=== PATIENT | female | born 1980 | race Two or more races ===

== ENCOUNTER 2020-11-17 08:59 | Outpatient (REF) | payer OTHER, SELFPAY ==
--- NOTE | ~2020-11-17 | XR_ITS ---
EXAMINATION: XR SHOULDER, LEFT CLINICAL INFORMATION: Pain in left shoulder. COMPARISON: None TECHNIQUE: AP external rotation, Grashey, scapular Y, and axillary views of the left shoulder. FINDINGS: The bones and soft tissues are normal. No fracture. Glenohumeral and acromioclavicular alignment is anatomic with normal joint space. No abnormal soft tissue calcifications. XR/XR shoulder LT min 2V IMPRESSION: Normal left shoulder.
== END 2020-11-17 09:00 | disposition home or self-care (01) ==
LOC: HO.XRAY 08:59
PROVIDERS: PCP Nurse Practitioner Family; Visit Provider Nurse Practitioner Family
DX: M25.512 Pain in left shoulder (principal); Z91.81 History of falling
CPT/HCPCS: 73030

== ENCOUNTER 2021-08-29 08:57 | Outpatient (REF) | payer OTHER, SELFPAY ==
--- NOTE | ~2021-08-29 | XR_ITS ---
EXAMINATION: CERVICAL SPINE 3 VIEWS CLINICAL INFORMATION: Cervical disc disorder, unspecified. COMPARISON: None. TECHNIQUE: Frontal, odontoid, lateral and swimmer's views are obtained. FINDINGS: Vertebral body heights and alignment are normal. The disc spaces are well-maintained. There is mild anterior spondylosis at C4-C5 and C5-C6.. No acute fracture or spondylolisthesis is seen. The posterior elements are intact. There is no prevertebral soft tissue swelling. The dens and C7-T1 interface are normal. XR/XR cervical spine 3V IMPRESSION: 1. No acute fracture or spondylolisthesis is seen. 2. The cervical disc spaces are well-maintained. 3. There is mild anterior spondylosis at C4-C5 and C5-C6.
== END 2021-08-29 08:58 | disposition home or self-care (01) ==
LOC: HO.XRAY 08:57
PROVIDERS: PCP Nurse Practitioner Family; Visit Provider Nurse Practitioner Family
DX: M50.90 Cervical disc disorder, unspecified, unspecified cervical region (principal)
CPT/HCPCS: 72040

== ENCOUNTER 2021-08-30 09:13 | Outpatient (REF) | payer OTHER, SELFPAY ==
--- NOTE | ~2021-08-30 | XR_ITS ---
EXAMINATION: XR SACRUM AND COCCYX CLINICAL INFORMATION: Sacrococcygeal disorder COMPARISON: Sacrum and coccyx radiograph from 11/21/2017 TECHNIQUE: 3 views of the sacrum and coccyx were obtained FINDINGS: No acute visible fracture or dislocation. Bilateral sacroiliac joints are patent. Joint spaces and alignment are maintained. Soft tissues are unremarkable. XR/XR sacrum coccyx min 2V IMPRESSION: No acute visible fracture or dislocation.
[2021-08-30 10:37] LABS: Alanine Aminotransferase 20 U/L (0-31); Albumin Level 4.1 g/dL (3.5-5.0); Alkaline Phosphatase 92 U/L (39-117); Anion Gap 12 (12-20); Aspartate Amino Transferase 19 U/L (5-31); Bilirubin Total 0.9 mg/dL (0.0-1.0); Blood Urea Nitrogen 8 mg/dL (9-16); Calcium 9.5 mg/dL (8.4-10.2); Carbon Dioxide 25 mmol/L (22-29); Chloride 109 mmol/L (96-108); Cholesterol 196 mg/dL; Estimated Glomerular Filt Rate > 60; Glucose Fasting 95 mg/dL (60-99); HDL Cholesterol 37 mg/dL; LDL Cholesterol Calculated 140 mg/dl; Potassium 3.7 mmol/L (3.3-5.1); Sodium 142 mmol/L (135-145); Total Protein 7.2 g/dL (6.5-8.0); Triglycerides 95 mg/dL
[2021-08-30 10:43] LABS: Appearance Urine CLEAR; Color Urine YELLOW; Glucose Urine UA NEG (NEG); Leukocyte Esterase Urine NEG (NEG); Nitrite Urine NEG (NEG); Specific Gravity - Urine 1.025 (1.005-1.025); Urine Blood NEG (NEG); Urine Ketones NEG (NEG); Urine Protein NEG (NEG-TRACE)
[2021-08-30 10:51] LABS: TSH reflex Free T4 1.08 uIU/mL (0.32-4.0)
== END 2021-08-30 09:14 | disposition home or self-care (01) ==
LOC: HO.LAB 09:13
PROVIDERS: PCP Nurse Practitioner Family; Visit Provider Nurse Practitioner Family
DX: M53.3 Sacrococcygeal disorders, not elsewhere classified (principal); F41.9 Anxiety disorder, unspecified
CPT/HCPCS: 36415; 72220; 80053; 80061; 81003; 84443

== ENCOUNTER 2021-10-09 12:53 | Outpatient (REF) | payer OTHER, SELFPAY ==
[2021-10-09 13:02] LABS: MANUAL DIFF FLAG NO
[2021-10-09 13:54] LABS: Basophils Absolute Auto 0.1 X10*3/uL (0.0-0.2); Basophils Percent Auto 0.7 % (0-2); Eosinophils Absolute Auto 0.2 X10*3/uL (0.0-0.4); Eosinophils Percent Auto 1.7 % (0-4); Hematocrit 37.8 % (37.0-47.0); Hemoglobin 12.4 g/dl (12.0-16.0); Imm Gran Abs Auto 0.03 X10*3/uL (0.00-0.03); Imm Gran Pct Auto 0.3 % (0.0-0.4); Lymphocytes Absolute Auto 3.8 X10*3/uL (1.2-4.9); Lymphocytes Percent Auto 33.6 % (20-40); Mean Corpuscular HGB Conc 32.8 g/dl (31.0-35.0); Mean Corpuscular Hemoglobin 24.3 pg (27.0-33.0); Mean Platelet Volume 8.5 fL (9.4-12.3); Monocytes Absolute Auto 0.7 X10*3/uL (0.1-1.2); Monocytes Percent Auto 6.3 % (2-11); Neutrophils Absolute Auto 6.4 x10*3/uL (2.0-8.3); Neutrophils Percent Auto 57.4 % (45-73); Platelet Count 357 X10*3/uL (160-400); Red Blood Count 5.11 X10*6/uL (4.20-5.50); Red Cell Distribution Width 13.7 % (11.0-16.0); White Blood Count 11.2 X10*3/uL (4.8-10.8)
[2021-10-09 14:24] LABS: Iron 62 mcg/dL (30-160); Percent Iron Saturation 14 % (15-50); Total Iron Binding Capacity 432 mcg/dL (228-428); Unsaturated Iron Binding 370 ug/dL
[2021-10-09 14:48] LABS: Ferritin 39 ng/mL (10-250)
[2021-10-09 15:22] LABS: Folate 11.9 ng/mL (> or = 4.0); Vitamin B12 258 pg/mL (200-900)
== END 2021-10-09 12:54 | disposition home or self-care (01) ==
LOC: HO.LAB 12:53
PROVIDERS: PCP Nurse Practitioner Family; Visit Provider Nurse Practitioner Family
DX: R53.83 Other fatigue (principal)
CPT/HCPCS: 36415; 82607; 82728; 82746; 83540; 85025

== ENCOUNTER 2021-10-20 10:45 | Outpatient (REF) | payer OTHER, SELFPAY ==
--- NOTE | ~2021-10-20 | MM_ITS ---
EXAMINATION: MM SCREENING DIGITAL BREAST TOMOSYNTHESIS, BILATERAL CLINICAL INFORMATION: Screening. Asymptomatic. The lifetime risk of breast cancer based on the Tyrer-Cuzick Model is 9.5%. COMPARISON: Mammography: None TECHNIQUE: Digital breast tomosynthesis is performed in both the craniocaudal and mediolateral oblique views along with computer-aided detection (CAD). Synthesized 2D images are generated from the tomosynthesis. FINDINGS: There are scattered areas of fibroglandular density (ACR BI-RADS breast composition Category b). There are no significant masses, abnormal calcifications, or other abnormalities. MM/MM tomosynthesis screening BI IMPRESSION: There are no significant changes from prior study. ASSESSMENT: BI-RADS 1: Negative RECOMMENDATION: Routine annual mammography screening. This patient's information was entered into a reminder system with a target due date for their next mammogram.
== END 2021-10-20 10:46 | disposition home or self-care (01) ==
LOC: HO.MAMMO 10:45
PROVIDERS: PCP Nurse Practitioner Family; Visit Provider Nurse Practitioner Family
DX: Z12.31 Encounter for screening mammogram for malignant neoplasm of breast (principal)
CPT/HCPCS: 77063; 77067

== ENCOUNTER 2022-01-03 11:34 | Outpatient (REF) | payer OTHER, SELFPAY ==
[2022-01-03 13:58] LABS: Appearance Urine CLEAR; Color Urine YELLOW; Glucose Urine UA NEG (NEG); Leukocyte Esterase Urine NEG (NEG); Nitrite Urine NEG (NEG); Urine Blood NEG (NEG); Urine Ketones NEG (NEG); Urine Protein NEG (NEG-TRACE)
== END 2022-01-03 11:35 | disposition home or self-care (01) ==
LOC: HO.HMGCLDS 11:34
PROVIDERS: Visit Provider Nurse Practitioner Family
DX: R30.0 Dysuria (principal)
CPT/HCPCS: 81003; 87086

== ENCOUNTER 2022-02-14 11:35 | Outpatient (REF) | payer OTHER, SELFPAY ==
--- NOTE | ~2022-02-14 | US_ITS ---
EXAMINATION: US RETROPERITONEAL LIMITED (RENAL ONLY) CLINICAL INFORMATION: Dysuria, flank pain. COMPARISON: None TECHNIQUE: Real-time imaging of the kidneys. FINDINGS: RIGHT KIDNEY: 10.6 x 4.2 x 5.1 cm (SAG x AP x TRV). The kidney is normal in size, contour, and echogenicity. Renal cortical thickness is normal. No calculi or focal parenchymal lesions. No hydronephrosis. LEFT KIDNEY: 11.3 x 5.2 x 5.3 cm (SAG x AP x TRV). The kidney is normal in size, contour, and echogenicity. Renal cortical thickness is normal. No calculi or focal parenchymal lesions. No hydronephrosis. The liver is echogenic. US/US renal BI IMPRESSION: Normal renal ultrasound..
== END 2022-02-14 11:36 | disposition home or self-care (01) ==
LOC: HO.HMGCX 11:35
PROVIDERS: Visit Provider Nurse Practitioner Family
DX: R10.9 Unspecified abdominal pain (principal); R30.0 Dysuria
CPT/HCPCS: 76775

== ENCOUNTER 2022-06-14 09:46 | Outpatient (REF) | payer OTHER, SELFPAY ==
[2022-06-15 13:29] LABS: BV Int Neg Control Negative (Negative); BV Int Pos Control Positive (Positive)
== END 2022-06-14 09:47 | disposition home or self-care (01) ==
LOC: HO.LAB 09:46
PROVIDERS: Visit Provider Physician Assistant Medical
DX: N76.0 Acute vaginitis (principal)
CPT/HCPCS: 87480; 87510; 87660

== ENCOUNTER 2022-07-27 17:54 | Emergency (ER) | payer OTHER, SELFPAY ==
[2022-07-27 18:03] VITALS: BP 147/81; PULSE 123; RESP 20; O2SAT 100; BMI 27.3
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
== END 2022-07-27 18:25 | disposition home or self-care (01) ==
LOC: HO.ED 18:18
PROVIDERS: Emergency Provider Emergency Medicine; PCP Nurse Practitioner Family
DX: S13.4XXA Sprain of ligaments of cervical spine, initial encounter (principal); S39.012A Strain of muscle, fascia and tendon of lower back, initial encounter; S16.1XXA Strain of muscle, fascia and tendon at neck level, initial encounter; M54.2 Cervicalgia; R51.9 Headache, unspecified; V43.53XA Car driver injured in collision with pick-up truck in traffic accident, initial encounter; Y92.410 Unspecified street and highway as the place of occurrence of the external cause; Y93.9 Activity, unspecified; Y99.9 Unspecified external cause status; Z79.899 Other long term (current) drug therapy; Z87.891 Personal history of nicotine dependence
CPT/HCPCS: 99282; 99283

== ENCOUNTER 2022-08-07 12:30 | Outpatient (REF) | payer OTHER, SELFPAY ==
--- NOTE | ~2022-08-07 | XR_ITS ---
EXAMINATION: CERVICAL SPINE, THORACIC SPINE AND LUMBAR SPINE. CLINICAL INFORMATION: Neck pain and back pain. COMPARISON: None TECHNIQUE: Cervical spine 3 views dorsal spine 3 views. Lumbar spine 3 views. FINDINGS: Cervical spine: There is mild straightening of cervical lordosis likely spasm. Vertebral heights, alignment and disc heights are normal. There is mild ventral spondylosis C5-C6 disc level. Rest the disc is unremarkable. The craniovertebral junction and the C1-C2 alignment is normal. The prevertebral soft tissues are normal. Dorsal spine: There is normal thoracic kyphosis. The vertebral heights, alignment and disc heights are normal. No visible acute fracture, dislocation or subluxation seen. No lytic or sclerotic process seen. Lumbar spine: There is normal lumbar lordosis. The vertebral heights, alignment and disc heights are normal. No visible acute fracture, dislocation or subluxation seen. SI joints are symmetrical and normal. XR/XR cervical spine 2V IMPRESSION: 1. Mild ventral spondylosis C5-C6 disc level. No visible acute fracture, dislocation or subluxation seen. 2. Unremarkable dorsal spine exam. 3. Unremarkable lumbar spine exam.
--- NOTE | ~2022-08-07 | XR_ITS ---
EXAMINATION: CERVICAL SPINE, THORACIC SPINE AND LUMBAR SPINE. CLINICAL INFORMATION: Neck pain and back pain. COMPARISON: None TECHNIQUE: Cervical spine 3 views dorsal spine 3 views. Lumbar spine 3 views. FINDINGS: Cervical spine: There is mild straightening of cervical lordosis likely spasm. Vertebral heights, alignment and disc heights are normal. There is mild ventral spondylosis C5-C6 disc level. Rest the disc is unremarkable. The craniovertebral junction and the C1-C2 alignment is normal. The prevertebral soft tissues are normal. Dorsal spine: There is normal thoracic kyphosis. The vertebral heights, alignment and disc heights are normal. No visible acute fracture, dislocation or subluxation seen. No lytic or sclerotic process seen. Lumbar spine: There is normal lumbar lordosis. The vertebral heights, alignment and disc heights are normal. No visible acute fracture, dislocation or subluxation seen. SI joints are symmetrical and normal. XR/XR lumbar spine 2-3V IMPRESSION: 1. Mild ventral spondylosis C5-C6 disc level. No visible acute fracture, dislocation or subluxation seen. 2. Unremarkable dorsal spine exam. 3. Unremarkable lumbar spine exam.
--- NOTE | ~2022-08-07 | XR_ITS ---
EXAMINATION: CERVICAL SPINE, THORACIC SPINE AND LUMBAR SPINE. CLINICAL INFORMATION: Neck pain and back pain. COMPARISON: None TECHNIQUE: Cervical spine 3 views dorsal spine 3 views. Lumbar spine 3 views. FINDINGS: Cervical spine: There is mild straightening of cervical lordosis likely spasm. Vertebral heights, alignment and disc heights are normal. There is mild ventral spondylosis C5-C6 disc level. Rest the disc is unremarkable. The craniovertebral junction and the C1-C2 alignment is normal. The prevertebral soft tissues are normal. Dorsal spine: There is normal thoracic kyphosis. The vertebral heights, alignment and disc heights are normal. No visible acute fracture, dislocation or subluxation seen. No lytic or sclerotic process seen. Lumbar spine: There is normal lumbar lordosis. The vertebral heights, alignment and disc heights are normal. No visible acute fracture, dislocation or subluxation seen. SI joints are symmetrical and normal. XR/XR thoracic spine 2V IMPRESSION: 1. Mild ventral spondylosis C5-C6 disc level. No visible acute fracture, dislocation or subluxation seen. 2. Unremarkable dorsal spine exam. 3. Unremarkable lumbar spine exam.
== END 2022-08-07 12:31 | disposition home or self-care (01) ==
LOC: HO.HMGCX 12:30
PROVIDERS: Visit Provider Nurse Practitioner Family
DX: M54.6 Pain in thoracic spine (principal); M54.2 Cervicalgia; M54.16 Radiculopathy, lumbar region
CPT/HCPCS: 72040; 72070; 72100

== ENCOUNTER → 2022-09-14 09:36 | Outpatient (BNVA) | payer OTHER, SELFPAY | PROVIDERS: PCP Nurse Practitioner Family; Visit Provider Nurse Practitioner Family | DX: M50.90 Cervical disc disorder, unspecified, unspecified cervical region (principal); M54.16 Radiculopathy, lumbar region; M62.838 Other muscle spasm; M53.3 Sacrococcygeal disorders, not elsewhere classified; Z87.828 Personal history of other (healed) physical injury and trauma | CPT/HCPCS: 99202 ==

== ENCOUNTER → 2022-10-05 09:21 | Outpatient (BNVA) | payer OTHER, SELFPAY | PROVIDERS: PCP Nurse Practitioner Family; Visit Provider Nurse Practitioner Family | DX: Z13.89 Encounter for screening for other disorder (principal) ==

== ENCOUNTER 2022-10-22 09:14 | Outpatient (REF) | payer OTHER, SELFPAY ==
--- NOTE | ~2022-10-22 | MM_ITS ---
EXAMINATION: MM SCREENING DIGITAL BREAST TOMOSYNTHESIS, BILATERAL CLINICAL INFORMATION: Screening. Asymptomatic. The lifetime risk of breast cancer based on the Tyrer-Cuzick Model is 9%. COMPARISON: Mammography: 10/20/2021 (baseline). TECHNIQUE: Digital breast tomosynthesis is performed in both the craniocaudal and mediolateral oblique views along with computer-aided detection (CAD). Synthesized 2D images are generated from the tomosynthesis. FINDINGS: There are scattered areas of fibroglandular density (ACR BI-RADS breast composition Category b). There are no significant masses, abnormal calcifications, or other abnormalities. Parenchymal pattern is similar to prior baseline exam. No architectural abnormality. There is some fine deodorant artifact overlying the axilla. No significant changes. MM/MM tomosynthesis screening BI IMPRESSION: No mammographic evidence of malignancy. ASSESSMENT: BI-RADS 1: Negative RECOMMENDATION: Routine annual mammography screening. This patient's information was entered into a reminder system with a target due date for their next mammogram.
== END 2022-10-22 09:15 | disposition home or self-care (01) ==
LOC: HO.MAMMO 09:14
PROVIDERS: PCP Nurse Practitioner Family; Visit Provider Nurse Practitioner Family
DX: Z12.31 Encounter for screening mammogram for malignant neoplasm of breast (principal)
CPT/HCPCS: 77063; 77067

== ENCOUNTER 2023-02-28 13:04 | Outpatient (AMB) | payer OTHER, SELFPAY ==
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
[2023-02-28 13:18] VITALS: BP 134/77; PULSE 90; O2SAT 97; BMI 28.5
== END 2023-02-28 13:34 | disposition home or self-care (01) ==
PROVIDERS: PCP Nurse Practitioner Family; Visit Provider Nurse Practitioner Family
DX: M25.561 Pain in right knee (principal); Z91.81 History of falling; M53.3 Sacrococcygeal disorders, not elsewhere classified; M54.50 Low back pain, unspecified; M50.90 Cervical disc disorder, unspecified, unspecified cervical region
CPT/HCPCS: 99214

== ENCOUNTER → 2023-02-28 13:04 | Outpatient (BNVA) | payer OTHER, SELFPAY | PROVIDERS: PCP Nurse Practitioner Family; Visit Provider Nurse Practitioner Family | DX: M25.561 Pain in right knee (principal); M50.90 Cervical disc disorder, unspecified, unspecified cervical region; M54.50 Low back pain, unspecified; M53.3 Sacrococcygeal disorders, not elsewhere classified; Z91.81 History of falling | CPT/HCPCS: 99212 ==

== ENCOUNTER 2023-03-08 08:21 | Outpatient (REF) | payer OTHER, SELFPAY ==
--- NOTE | ~2023-03-08 | XR_ITS ---
EXAMINATION: XR KNEE, RIGHT CLINICAL INFORMATION: Pain in the right knee. COMPARISON: None available. TECHNIQUE: Four views of the right knee. FINDINGS: No acute fractures or subluxation. Minimal joint space narrowing of the medial and patellofemoral compartments. No erosions or chondrocalcinosis. Small joint effusion. XR/XR knee RT 3V IMPRESSION: 1. No acute fractures or subluxation. 2. 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 3. Small joint effusion.
== END 2023-03-08 08:22 | disposition home or self-care (01) ==
LOC: HO.XRAY 08:21
PROVIDERS: PCP Nurse Practitioner Family; Visit Provider Nurse Practitioner Family
DX: M25.561 Pain in right knee (principal); Z91.81 History of falling
CPT/HCPCS: 73562

== ENCOUNTER 2023-08-13 08:26 | Outpatient (REF) | payer OTHER, SELFPAY ==
[2023-08-13 09:22] LABS: Appearance Urine Cloudy; Color Urine Yellow; Glucose Urine UA Negative (Negative); Leukocyte Esterase Urine Negative (Negative); Nitrite Urine Negative (Negative); PH 5.5 (5.0-9.0); Urine Blood Negative (Negative); Urine Ketones Negative (Negative); Urine Protein Negative (Neg-Trace)
== END 2023-08-13 08:27 | disposition home or self-care (01) ==
LOC: HO.LAB 08:26
PROVIDERS: PCP Nurse Practitioner Family; Visit Provider Nurse Practitioner Family
DX: R30.0 Dysuria (principal)
CPT/HCPCS: 81003

== ENCOUNTER 2023-09-04 10:15 | Outpatient (REF) | payer OTHER, SELFPAY ==
--- NOTE | ~2023-09-04 | US_ITS ---
EXAMINATION: US RETROPERITONEAL COMPLETE (RENAL) CLINICAL INFORMATION: Frequency of micturition. COMPARISON: Renal ultrasound 02/14/2022. Ultrasound abdomen 06/10/2008. TECHNIQUE: Real-time imaging of the kidneys and bladder. FINDINGS: RIGHT KIDNEY: 10.7 x 3.6 x 5.2 cm (SAG x AP x TRV). The kidney is normal in size, contour, and echogenicity. Renal cortical thickness is normal. No calculi or focal parenchymal lesions. No hydronephrosis. LEFT KIDNEY: 10.6 x 4.4 x 4.5 cm (SAG x AP x TRV). The kidney is normal in size, contour, and echogenicity. Renal cortical thickness is normal. No calculi or focal parenchymal lesions. No hydronephrosis. BLADDER: Partially distended. Bilateral ureteral jets are demonstrated. Prevoid bladder volume is 105 mL. Postvoid bladder volume is 22 mL. US/US retroperitoneal comp IMPRESSION: Unremarkable examination.
== END 2023-09-04 10:16 | disposition home or self-care (01) ==
LOC: HO.US 10:15
PROVIDERS: PCP Nurse Practitioner Family; Visit Provider Urology
DX: R35.0 Frequency of micturition (principal); N32.81 Overactive bladder
CPT/HCPCS: 76770

== ENCOUNTER 2023-12-06 09:04 | Outpatient (REF) | payer OTHER, SELFPAY | END 2023-12-06 09:05 | disposition home or self-care (01) | LOC: HO.MAMMO 09:04 | PROVIDERS: PCP Nurse Practitioner Family; Visit Provider Nurse Practitioner Family | DX: Z12.31 Encounter for screening mammogram for malignant neoplasm of breast (principal) | CPT/HCPCS: 77063; 77067 ==

== ENCOUNTER → 2023-12-06 09:15 | Outpatient (BNV) | payer OTHER, SELFPAY | PROVIDERS: PCP Nurse Practitioner Family; Visit Provider Radiology Diagnostic Radiology | DX: Z12.31 Encounter for screening mammogram for malignant neoplasm of breast (principal) | CPT/HCPCS: 77063; 77067 ==

== ENCOUNTER 2024-03-12 14:44 | Outpatient (AMB) | payer OTHER, SELFPAY ==
[2024-03-12 14:46] VITALS: BP 118/76; PULSE 92; O2SAT 98; BMI 30.4
--- NOTE | 2024-03-12 14:46 | A.OFFPC_ITS ---
Vital Signs 03/12/24 14:46 Height 5 ft 1 in Weight 161 lb BMI 30.4 BP 118/76 Blood Pressure Location Rt brachial Position Sitting Pulse 92 Pulse Source Pulse Oximeter Pulse Oximetry (%) 98 Oxygen Delivery Method Room Air Intake Visit Reasons: Migraines, back pain Intake Note: pt is here for migraines, back pain. patient has a postivie PHQ9 and PEDRO 7 today. 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: No Accompanied by: Self / Same As Patient Allergies LOTION Allergy (Intermediate, Uncoded 03/12/24 16:23) facial rash TUNA FISH Allergy (Intermediate, Uncoded 03/12/24 16:23) facial rash Medication List - Last Reconciled 03/12/24 by MONICA Ma albuterol sulfate 90 mcg/actuation 1 inh inhalation QID PRN 30 days betamethasone dipropionate 0.05% 1 appl topical DAILY PRN Donut pillow As directed lidocaine 5% 1 patch topical DAILY Tobacco use date assessed: 03/12/24 Dental Screening Dental Screen Date: 03/12/24 Did you have a dental visit in the last 12 months?: Yes Did you have a dental problem in the last 6 months where you did not have access to dental care?: No Was dental information given to patient?: Patient has dentist HPI Migraines, back pain HPI Details Pt c/o frequent migraines, mostly to posterior aspect of her head and moves anteriorly. She reports that these have been happening daily. Pt takes tylenol which helps minimally. Recommended excedrin migraine. Pt also reports cervical neck pain with radicular symptoms down her BUE. Previous cervical spine XR showed mild ventral spondylosis C5-C6 disc level. No visible acute fracture, dislocation or subluxation seen. Will refer to PT. Pt reports dermatitis to her bilat feet. She has seen podiatry who said this was not tinea. Will send steroid cream and refer to derm. Also recommended CeraVe lotion. Pt reports bilat axillary tenderness (rashing/tenderness). She reports not being able to wear rosamaria dorant due to this, which makes it much worse. Denies fever, chills, and dizziness. [facility] Medical History Acute cystitis Fatigue Coccygeal pain Anxiety Left shoulder pain Social History (Reviewed 03/12/24 @ 15:13 by Brodie Gonzalez, [facility]) Housing: House Alcohol intake: former Year quit: 2005 Patient Tobacco Use Status: Former Tobacco user Years Smoked: quit 12/2005 e-Cigarette/Vaping Use: Never Used Second Hand Smoke Exposure: Yes Substance Use Type: Marijuana service: No Current occupational status: unemployed Cognitive needs: No Hearing needs: No Vision needs: No Questionnaire PHQ-9 Over the last 2 weeks, how often have you been bothered by any of the following problems? 1. Little interest or pleasure in doing things: nearly every day 2. Feeling down, depressed, or hopeless: more than half the days 3. Trouble falling or staying asleep, or sleeping too much: nearly every day 4. Feeling tired or having little energy: nearly every day 5. Poor appetite or overeating: nearly every day 6. Feeling bad about yourself - or that you are a failure or have let yourself or your family down: nearly every day 7. Trouble concentrating on things, such as reading the newspaper or watching television: nearly every day 8. Moving or speaking so slowly that other people could have noticed. Or the opposite - being so fidgety or restless that you have been moving around a lot more than usual: more than half the days 9. Thoughts that you would be better off or of hurting yourself in some way: several days Total score: 23 Depression Screening Interpretation: Positive Depression Screening Follow-up: Existing condition and Declines treatment Depression Screening Done: Yes 48729 - PHQ-9 Billing: Yes Source: Developed by Drs. Trevor Brar, Jenniffer Carrion, Felix Segovia and colleagues, with an educational naif from [employer]. Thrive Questionnaire Date Thrive assessed: 03/12/24 I am a: Patient What is your living situation today?: I have a steady place to live Within the past 12 months, did the food you bought not last and you didn't have the money to get more?: Sometimes True Within the past 12 months, did you worry whether your food would run out before you got money to buy more?: Often true Do you have trouble paying for medicines?: No Do you have trouble getting transportation to medical appointments?: No Do you have trouble paying your heating and electricity bill?: No Do you have trouble taking care of your child, family member or friend?: No Do you have trouble with day-to-day activities such as bathing, preparing meals, shopping, managing finances, etc.?: Yes Are you currently unemployed and looking for a job?: No Are you interested in more education?: No Please select the resources that you would like help with: Food and Utilities Currently or been in a relationship where the following occur: No concerns reported THRIVE Score: 2 AUDIT C Alcohol Use Questionnaire (AUDIT-C) 1. How often do you have a drink containing alcohol?: Never Total Score: 0 Score Reviewed/Action Taken: Yes PEDRO-7 AMB Questionnaire PEDRO-7 Date PEDRO - 7 assessed: 03/12/24 Feeling nervous, anxious, or on edge: 2 = More than half the days Not being able to stop or control worryin = Nearly every day Worrying too much about different things: 3 = Nearly every day Trouble relaxin = Nearly every day Being so restless that it is hard to sit still: 3 = Nearly every day Becoming easily annoyed or irritable: 3 = Nearly every day Feeling afraid as if something awful might happen: 1 = Several days Total PEDRO-7 score (0-4 normal; 5-9 mild; 10-14 moderate; 15-21 severe): 18 Source: Developed by Drs. Trevor Brar, Jenniffer Carrion, Felix Segovia and colleagues, with an educational naif from [employer]. PEDRO-7 Assessment Billing PEDRO-7 Assessment Tool: PEDRO-7 Assessment 15532 Review of Systems Const Reports as per HPI Physical exam (Primary Care) Vital Signs: Last Vital Signs Pulse 92 03/12/24 14:46 BP 118/76 03/12/24 14:46 Pulse Ox 98 03/12/24 14:46 Oxygen Delivery Method Room Air 03/12/24 14:46 BMI result Body Mass Index 30.4 Tobacco/Smoking Status: Tobacco use Status Tobacco use date assessed 03/12/24 03/12/24 14:48 Patient Tobacco Use Status Former Tobacco user 03/12/24 14:48 e-Cigarette/Vaping Use Never Used 03/12/24 14:48 PHQ-9: PHQ-9 Score PHQ-9: Total score 23 03/12/24 15:15 Depression Screening Interpretation: Positive Depression Screening Follow-up: Existing condition and Declines treatment Thrive Assessment: Date of Thrive Assessment Date Thrive assessed 03/12/24 03/12/24 14:48 Currently or been in a relationship where the following occur: No concerns reported Const General: cooperative Orientation/consciousness: patient oriented x3 Resp Effort & Inspection: normal respiratory effort Auscultation: diminished lung sounds Cardio Rate: regular rate Rhythm: regular rhythm Heart sounds: S1 normal heart sound present, S2 normal heart sound present and Murmur heart sound present Back/Spine/Pelvis Other: cervical neck tenderness noted with neck flexion and turning head side to side, + spurlings to right Skin Other: bulat plantar aspect of feet with dry appearing erythema that spreads to medial aspect of bilat feet. erythema (macular) to bilat axillary regions, slight tenderness with touch Neuro General: patient oriented x3 Psych Appearance: grossly normal Mental Status: mental status grossly normal Speech and movement: Normal speech and movement present Affect: normal affect Attitude: cooperative Thought process: Normal thought process present Thought content: Normal thought content present Insight: Good insight present (Psych) Judgement: Good judgement present (Psych) Assessment and Plan Assessment & Plan (1) Cervical neck pain with evidence of disc disease: Code(s): M50.90 - Cervical disc disorder, unspecified, unspecified cervical region Plan: PT ordered, see previous XR results (2) Migraines: Code(s): G43.909 - Migraine, unspecified, not intractable, without status migrainosus Plan: excedrin migraine (3) Rash of both feet: Code(s): R21 - Rash and other nonspecific skin eruption Plan: steroid cream, lotion, derm referral placed Plan The patient agreed to the use of a medical service representative for this encounter. Scribed for ISIDORO Guy by Brianda Thorne medical service representative, on 03/12/2024 at 15:10 EST. Orders: Orders Complete Blood Count Auto Diff Today G43.909 - Migraine, unspecified, not intractable, without status migrainosus, M50.90 - Cervical disc disorder, unspecified, unspecified cervical region Comprehensive [place]. Panel Fast Today G43.909 - Migraine, unspecified, not intractable, without status migrainosus, M50.90 - Cervical disc disorder, unspecified, unspecified cervical region TSH reflex Free T4 Today G43.909 - Migraine, unspecified, not intractable, without status migrainosus, M50.90 - Cervical disc disorder, unspecified, unspecified cervical region UA CC w/rflx Micro + Cult Today G43.909 - Migraine, unspecified, not intractable, without status migrainosus, M50.90 - Cervical disc disorder, unspecified, unspecified cervical region PT Evaluation and Treatment Today M50.90 - Cervical disc disorder, unspecified, unspecified cervical region Lipid Panel Today G43.909 - Migraine, unspecified, not intractable, without status migrainosus, M50.90 - Cervical disc disorder, unspecified, unspecified cervical region Referrals Dermatology Referral R21 - Rash and other nonspecific skin eruption Medications: New betamethasone dipropionate 0.05% 1 appl topical DAILY PRN 45 grams 0RF skin irritation Coding Level of Care Code Est Pt Level 3 (27322) Diagnoses Cervical neck pain with evidence of disc disease M50.90 Migraines G43.90 Rash of both feet R21 Additional Codes PEDRO-7 Assessment Billing - PEDRO-7 Assessment Tool: PEDRO-7 Assessment 60925 ([id number])
== END 2024-03-12 15:32 | disposition home or self-care (01) ==
PROVIDERS: PCP Nurse Practitioner Family; Visit Provider Nurse Practitioner Family
DX: M50.90 Cervical disc disorder, unspecified, unspecified cervical region (principal); G43.909 Migraine, unspecified, not intractable, without status migrainosus; R21 Rash and other nonspecific skin eruption
CPT/HCPCS: 99213

== ENCOUNTER 2024-05-12 11:14 | Outpatient (AMB) | payer OTHER, SELFPAY ==
--- NOTE | 2024-05-12 11:35 | MHC.OFFWIV ---
Intake Vital Signs 05/12/24 11:37 Height 5 ft 1 in Weight 157 lb BMI 29.7 BP 142/90 H Blood Pressure Location Lt brachial Position Sitting Pulse 94 Pulse Source Pulse Oximeter Temp 99.4 F Temp Source Oral Pulse Oximetry (%) 96 Oxygen Delivery Method Room Air Intake Visit Reasons: EP-SOB, dry mouth, congestion Intake Note: Patient here for SOB, congestion, dry mouth and cough which has been present for about 1 week. Patient Tobacco Use Status: Former Tobacco user Allergies LOTION Allergy (Intermediate, Uncoded 05/12/24 11:40) facial rash TUNA FISH Allergy (Intermediate, Uncoded 05/12/24 11:40) facial rash Do you need a note to return to daycare/school/sports/work: No HPI HPI Comments History of Present Illness Details She presents to office with [facility] She has hx of asthma and has inhaler which she does not use daily States also hx of anxiety ongoing for a while During anxiety and sometimes with stairs and activity she has SOB at baseline States dry mouth more than usual x 1 week Last night felt SOB with some heart racing but this resolved as soon as she got out of bed and went into fresh air Drank fluids and thought mouth dry and looked white ? thrush Food felt dry tasting Last inhaler use was approx 2 weeks ago Unsure about acid reflux diagnosis; said sometimes he has nausea/vomiting after acidic foods Uses Tums intermittently Slight congestion now with post nasal drop but no cold or cough symptoms PFSH Medical History Acute cystitis Fatigue Coccygeal pain Anxiety Left shoulder pain Social History Housing: House Alcohol intake: former Year quit: 2005 Patient Tobacco Use Status: Former Tobacco user Years Smoked: quit 12/2005 e-Cigarette/Vaping Use: Never Used Second Hand Smoke Exposure: Yes Substance Use Type: Marijuana service: No Current occupational status: unemployed Cognitive needs: No Hearing needs: No Vision needs: No Review of Systems Const Denies chills, Denies fatigue, Denies fever(s) and Denies headache(s) Eyes Denies change in vision ENT Denies dizziness, Denies headache(s), Reports sore throat (dryness), Denies throat swelling, Denies tongue swelling and Reports other (white discoloration tongue) Card Denies chest pain, Denies syncope, Reports rapid heart rate (episodes with anxiety) and Reports dyspnea Resp Denies cough and Reports dyspnea GI Denies abdominal pain, Denies diarrhea, Reports nausea and Reports vomiting Musc Denies myalgias Neuro Denies dizziness, Denies syncope and Denies headache(s) Psych Reports anxiety Endo Denies fatigue Aller/Immun Denies throat swelling and Denies tongue swelling Physical Exam Vital Signs: Last Vital Signs Temp 99.4 F 05/12/24 11:37 Pulse 94 05/12/24 11:37 BP 142/90 H 05/12/24 11:37 Pulse Ox 96 05/12/24 11:37 Oxygen Delivery Method Room Air 05/12/24 11:37 BMI result Body Mass Index 29.7 General: Non-toxic, NAD. Speaking full sentences. Skin: Warm dry throughout Eye: EOMI HENT: Airway patent. Uvula midline. No pharyngeal erythema or edema. 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 + slight white discoloration to dorsum of tongue and some to L lateral gingivae mucosa. No lip or tongue edema. Bilateral canals clear. TM non-erythematous, non-bulging. No TM perforation or hemotympanum noted. Respiratory: CTA bilaterally. No wheezes, rales or rhonchi Cardiac: RRR. No murmur MSK: Full ROM extremities. Neurology: A/O. No aphasia or facial droop. Gait without abnormality Psych: Good mood and affect Assessment & Plan Assessment & Plan (1) Thrush: Code(s): B37.0 - Candidal stomatitis Plan: Patient seen and evaluated. No strep indicated Pt request covid/flu/rsv be sent + thrush on exam and nystatin use discussed with pt Her palpitations/SOB seem consistent with anxiety as she gets them when feeling anxious and she endorses a lot of anxiety and triggers during visit tofay No SOB or palpitations symptoms present currently We discussed s/s that warrant ER evaluation and management Patient gave verbal understanding and had no additional questions or concerns at time of discharge All questions answered Orders: Orders SARS-CoV2/FLU/RSV Today B37.0 - Candidal stomatitis Medications: New nystatin swish and spit after 30 seconds 5 mL PO QID 200 mL 0RF 10 days Coding Level of Care Code Est Pt Level 3 (22397) Diagnoses Thrush B37.0
[2024-05-12 11:37] VITALS: BP 142/90; PULSE 94; TEMP 37.4; O2SAT 96; BMI 29.7
== END 2024-05-12 12:15 | disposition home or self-care (01) ==
PROVIDERS: PCP Nurse Practitioner Family; Visit Provider Physician Assistant
DX: B37.0 Candidal stomatitis (principal)

== ENCOUNTER 2024-05-12 11:14 | Outpatient (REF) | payer OTHER, SELFPAY ==
[2024-05-12 14:22] LABS: Influenza A PCR NEGATIVE (Negative); Influenza B PCR NEGATIVE (Negative); Resp Syncy Virus RNA Qual PCR NEGATIVE (Negative); SARS COV2 PCR INHOUSE NEGATIVE (Negative)
== END 2024-05-12 11:15 | disposition home or self-care (01) ==
LOC: HO.HMGCLNP 11:14
PROVIDERS: PCP Nurse Practitioner Family; Visit Provider Physician Assistant
DX: B37.0 Candidal stomatitis (principal)
CPT/HCPCS: 0241U; 99212

== ENCOUNTER 2024-05-29 08:59 | Outpatient (REF) | payer OTHER, SELFPAY ==
[2024-05-29 10:07] LABS: MANUAL DIFF FLAG NO
[2024-05-29 10:09] LABS: Basophils Absolute Auto 0.1 X10*3/uL (0.0-0.2); Basophils Percent Auto 0.9 % (0-2); Eosinophils Absolute Auto 0.2 X10*3/uL (0.0-0.4); Eosinophils Percent Auto 2.1 % (0-4); Hematocrit 39.6 % (37.0-47.0); Imm Gran Abs Auto 0.01 X10*3/uL (0.00-0.03); Imm Gran Pct Auto 0.1 % (0.0-0.4); Lymphocytes Absolute Auto 2.3 X10*3/uL (1.2-4.9); Mean Corpuscular HGB Conc 32.8 g/dl (31.0-35.0); Mean Corpuscular Hemoglobin 24.4 pg (27.0-33.0); Mean Corpuscular Volume 74.4 fL (80.0-98.0); Mean Platelet Volume 8.6 fL (9.4-12.3); Monocytes Absolute Auto 0.5 X10*3/uL (0.1-1.2); Monocytes Percent Auto 6.7 % (2-11); Neutrophils Percent Auto 62.2 % (45-73); Platelet Count 343 X10*3/uL (160-400); Red Blood Count 5.32 X10*6/uL (4.20-5.50); Red Cell Distribution Width 13.5 % (11.0-16.0); White Blood Count 8.1 X10*3/uL (4.8-10.8)
[2024-05-29 10:59] LABS: Alanine Aminotransferase 26 U/L (0-31); Albumin Level 4.2 g/dL (3.5-5.0); Alkaline Phosphatase 75 U/L (39-117); Anion Gap 11 (12-20); Aspartate Amino Transferase 29 U/L (5-31); Bilirubin Total 0.8 mg/dL (0.0-1.0); Blood Urea Nitrogen 10 mg/dL (9-16); Calcium 9.3 mg/dL (8.4-10.2); Carbon Dioxide 26 mmol/L (22-29); Chloride 105 mmol/L (96-108); Cholesterol 218 mg/dL (<200); Estimated Glomerular Filt Rate > 60; Glucose Fasting 96 mg/dL (60-99); HDL Cholesterol 47 mg/dL (>40); LDL Cholesterol Calculated 153 mg/dL (<100); Potassium 3.6 mmol/L (3.3-5.1); Sodium 138 mmol/L (135-145); Total Protein 7.5 g/dL (6.5-8.0); Triglycerides 92 mg/dL (<150)
[2024-05-29 11:04] LABS: TSH reflex Free T4 0.78 uIU/mL (0.32-4.0)
[2024-05-29 13:26] LABS: Appearance Urine Turbid; Color Urine Yellow; Glucose Urine UA 100 mg/dL (Negative); Leukocyte Esterase Urine Negative (Negative); Nitrite Urine Negative (Negative); PH 6.5 (5.0-9.0); Specific Gravity - Urine >= 1.030 (1.005-1.025); UMIC TRIGGER UACC YES; Urine Blood Negative (Negative); Urine Ketones Trace mg/dL (Negative); Urine Protein 30 (1+) mg/dL (Neg-Trace)
[2024-05-29 13:39] LABS: Bacteria Urine 2+ (None Seen); Squamous Epithelial Cell Urine >20 /HPF (0-2); UACC Culture Trigger YES
[2024-05-29 13:40] LABS: RBC Urine 0-2 /HPF (0-2)
== END 2024-05-29 09:00 | disposition home or self-care (01) ==
LOC: HO.HMGCLDS 08:59
PROVIDERS: PCP Nurse Practitioner Family; Visit Provider Nurse Practitioner Family
DX: M50.90 Cervical disc disorder, unspecified, unspecified cervical region (principal); G43.909 Migraine, unspecified, not intractable, without status migrainosus
CPT/HCPCS: 36415; 80053; 80061; 81001; 84443; 85025; 87086

== ENCOUNTER 2024-09-18 09:00 | Outpatient (RCR) | payer OTHER, SELFPAY ==
--- NOTE | 2024-08-10 10:14 | MHC.PT.EP ---
[facility] [place] [facility] [place] [facility] [place] [facility] [address] Yamila Obrien [address] [phone] F: [phone] F: [phone] F: [phone] F: [phone] Physical Therapy Plan of Care Date of Evaluation: 08/10/24 Date of Surgery: Diagnosis: cervical disc disorder, unspecified Assessment: 44 y/o female referred to PT with cervicalgia. Of note, pt talks at length re: multiple mental health and physical health issues requiring constant redirection. Also emphasized pt finish intake paperwork for upcoming mental health therapy appointment. Pt reports whole body pain, migraines, neck pain, and feeling stiffness resulting in pain and difficulty with 'everything' such as driving, turning, sleeping, lifting, reaching, chores, and caregiving for son. Examination shows limited cervical rotation, normal shoulder ROM with end range pain, fair strength with pain, shallow fast breathing pattern, and TTP. Educated pt on downtraining of nervous system for chronic pain and f/u with mental health therapist. 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 Manual therapy to restore motion and function. Therapeutic exercise to improve strength and flexibility. Neuromuscular re-education for posture and balance. Therapeutic activities to return to functional activities of daily living. Electronically signed by: Gladys Carreon PT Please sign and return to therapist. Thank you for your referral.
--- NOTE | 2024-10-22 15:09 | MHC.PT.DC ---
[facility] [place] [facility] [place] [facility] [address] Yamila Obrien [address] [phone] F: [phone] F: [phone] F: [phone] F: [phone] Physical Therapy Discharge Report Diagnosis: cervical disc disorder, unspecified Date of Surgery: Date of Evaluation: 08/10/24 Date of Discharge: 10/22/24 Treatments to Date: 5 Cancellations to Date: 1 No Shows to Date: 0 Discharge Status: Independent with HEP Discharge Summary: Pt did not f/u with further visits and it has been >one month since attending PT. At time of last visit, education pt on breathing and avoiding breath holding with exercises. And reviewed performing exercises in comfortable ranges for improved toelrance. Electronically signed by: Gladys Carreon PT Please sign and return to therapist. Thank you for your referral.
== END 2024-10-22 15:09 | disposition home or self-care (01) ==
LOC: HO.PTCHIC 09:00
PROVIDERS: PCP Nurse Practitioner Family; Visit Provider Nurse Practitioner Family
DX: M50.90 Cervical disc disorder, unspecified, unspecified cervical region (principal)
CPT/HCPCS: 97110; 97162

== ENCOUNTER 2024-09-21 13:08 | Outpatient (AMB) | payer OTHER, SELFPAY ==
--- OUTSIDE RECORDS SUMMARY | 2024-09-21 13:10 | XMS_ITS | Clinical Summary ---
Author Organization [address] [place] [address] Address [address] [place] [address] Phone Care Team Providers Care Fox Raiser Name Role Phone Hannahmadelin Brodie Carroll NP Primary Care Provider Allergies Active Allergy Reactions Criticality Noted Date Comments Other Anaphylaxis High 12/18/2022 Seafood Medications albuterol HFA (ProAir HFA) 90 mcg/actuation inhaler 11/30/2020 Active doxycycline (VIBRAMYCIN) 100 mg capsule Take 1 capsule (100 mg total) by mouth 2 (two) times a day for 7 days. Take with at least 8 ounces (large glass) of water, do not lie down for 30 minutes after 14 capsule 08/25/2024 09/01/19 25 Active Problems Problem Noted Date Diagnosed Date Vulvar irritation 02/10/2024 Overview (07/09/2024): Last Assessment & Plan: Will send labs to ensure no evidence of infection. None on wet mount today. Chlamydia 08/26/2022 Bacterial vaginosis 08/23/2022 Overview (07/09/2024): Last Assessment & Plan: Treated with metrogel. Labial cyst 10/12/2021 Overview (07/09/2024): Last Assessment & Plan: Discussed that as cyst is very small and non-tender no intervention needed, however if cyst become larger or painful patient to return for I&D. Skin lesions 10/12/2021 Overview (07/09/2024): Last Assessment & Plan: Referral placed to dermatology. Irregular menses 11/03/2020 Overview (07/09/2024): Last Assessment & Plan: Urine test negative. Chronic pain 04/14/2019 Marijuana user 04/14/2019 Overview (07/09/2024): Stats she uses for anxiety and chronic pain Encounters Date Type Department Care Team Description 08/25/2024 9:45 AM EST Office Visit Obstetrics & Gynecology - [address] [phone] Nikki Lundy CNM Vaginal irritation (Primary Dx); Screen for STD (sexually transmitted disease); Urinary frequency from Last 3 Months Immunizations Name Administration Dates Next Due Hepatitis A-Hepatitis B Adul t (Twinrix) 18yo and older 11/29/2016,07/04/2016,05/25/2016 Surgical History Surgery Date Site/Laterality Comments SECTION 06/11/2006 PROCEDURE: HISTORICAL DELIVERY; COMMENT: Yeni Medical History Medical History Date Comments Anxiety state DX:Anxiety state Venereal disease DX:Venereal dis ease Asthma DX:Asthma Generalized osteoarthrosis, unspecified site DX:Generalized osteoarthrosi s, unspecified site Dysplasia of cervix, low gra de (LOTTIE 1) 04/30/2003 DX:Dysplasia of cervix, low grade (LOTTIE 1) History of colposcopy 05/26/2003 DX:History of colposcopy; COMMENT: LOTTIE 1 and 02/11/2004 LOTTIE 1 and 11/30/15 negative ASCUS with positive high ris k HPV cervical 10/05/2003 DX:ASCUS with positive high risk HPV cervical; COMMENT: 11/07/2015 History of vitamin D deficiency 12/14/2015 DX:History of vitamin D deficiency; COMMENT: Vitamin D = 15 History of anemia 05/28/2006 DX:History of anemia; COMMENT: H&H 10.9/33.3 History of depression 12/12/2005 DX:History of depression Family History Medical History Relation Name Comments Diabetes Father Hypertension Mother Stroke Paternal Grandfather Other: autistic Son Diabetes Uncle IDDM Breast cancer Neg Hx Colon cancer Neg Hx Ovarian cancer Neg Hx Relation Name Status Comments Father Alive Mother Alive Paternal Grandfather Son Uncle Social History Tobacco Use Types Packs/Day Years Used Date Smoking Tobacco: Former Smokeless Tobacco: Never Tobacco Cessation:Counseling Given: Not Answered Alcohol Use Standard Drinks/Week Comments No 0 (1 standard drink = 0.6 oz pur e alcohol) Comments No Sex and Gender Information Value Date Recorded Sex Assigned at Not on file Legal Sex Female 10:03 PM EST Gender Identity Not on file Sexual Orientation Not on file Obstetrics History Para Term AB IAB SAB Ectopic Multiple Livin g Live Births 2 1 1 1 1 1 1 Date Outcome GA Total Labor Labor/2nd/3rd Weight Sex Type Anes PTL Daniella A1 A5 Name Clin SAB 2005 36w 0d 3232 g (114 oz) M CS-LT ranv Epidur al Livin g [address] Cifuentes Delivery Location:[facility] Last Filed Vital Signs Vital Sign Reading Time Taken Comments Blood Pressure 120/88 08/25/2024 9:47 AM EST Pulse 101 08/25/2024 9:47 AM EST Temperature - - Respiratory Rate - - Oxygen Saturation - - Inhaled Oxygen Concentration - - Weight 70.8 kg (156 lb) 08/25/2024 9:47 AM EST Height 156.2 cm (5' 1.5 ) 08/25/2024 9:47 AM EST Body Mass Index 29 08/25/2024 9:47 AM EST Plan of Treatment Upcoming Encounters Date Type Department Care Team (Late st Contact Info) Description 09/25/2024 8:45 AM EST Office Visit Obstetrics & Gynecology - [address] [phone] Nikki Lundy, CNM [address] [place] [address] 10/08/2024 9:30 AM EST Consult Orthopedic Surgery - [place] [phone] [phone] Srikanth Calvin, DPM [address] [phone] Health Maintenance Due Date Last Done Comments Breast Cancer Screening 1981 Depression Screening 07/07/2022 Social Influencers of Health Screening 07/07/2022 COVID-19 Vaccine (2023-2 5 season) 2024 Influenza Vaccine (#1) 2024 Cervical Cancer Screening: HPV 04/14/2025 04/14/2020 DTaP,Tdap,and Td Vaccines (2 - Td or Tdap) 03/26/2028 03/26/2018 Hepatitis A Vaccines Aged Out 11/29/2016, 07/04/2016, 05/25/2016 No longer eligible based on patient's age to complete this topic Hepatitis B Vaccines Completed 11/29/2016, 07/04/2016, 05/25/2016 HIV Screening Completed 11/26/2023 Hepatitis C Screening Completed 11/26/2023 HIB Vaccines Aged Out No longer eligi ble based on patient's age to complete this topic HPV Vaccines Aged Out No longer eligi ble based on patient's age to complete this topic IPV Vaccines Aged Out No longer eligi ble based on patient's age to complete this topic MMR Vaccines Aged Out No longer eligi ble based on patient's age to complete this topic Meningococcal ACWY Vaccine Aged Out N o longer eligible based on patient's age to complete this topic Meningococcal B Vacine Aged Out No lo nger eligible based on patient's age to complete this topic Pneumococcal Vaccine: Pediatrics (0 to 5 Years) and At-Risk Patients (6 to 64 Years) Aged Out No longer eligible b ased on patient's age to complete this topic RSV Immunization Patients Under 20 months Aged Out No longer eligible b ased on patient's age to complete this topic Varicella Vaccines Aged Out No longer eligible based on patient's age to complete this topic Procedures Procedure Name Priority Date/Time Associated Diagnosis Comments TRICHOMONAS VAGINALIS ANTIGEN Routine 08/25/2024 10:10 AM EST Vaginal irritation Screen for STD (sexually transmitted disease) CULTURE URINE Routine 08/25/2024 10:10 AM EST Urinary frequency CHLAMYDIA TRACHOMATIS AND NEISSERIA GONORRHOEAE PCR Routine 08/25/2024 10:10 AM EST Vaginal irritation Screen for STD (sexually transmitted disease) WET PREP, GENITAL Routine 08/25/2024 10: 10 AM EST Vaginal irritation Screen for STD (sexually transmitted disease) POC URINE AUTO W/O MICRO Routine 08/25/2024 10:01 AM EST Vaginal irritation Urinary frequency HEPATITIS C SCREENING Routine 11/26/2023 HIV SCREENING Routine 11/26/2023 HPV Routine 04/14/2020 from Last 3 Months or Most Recently Relevant to Health Maintenance Results * Trichomonas vaginalis antigen (08/25/2024 10:10 AM EST) Trichomonas vaginalis Negative Negative 08/25/2024 1:32 PM EST [facility] Swab Vaginal structure / Unknown Non-blood Collection / Unknown 08/25/2024 10:10 AM EST 08/25/2024 11:52 AM EST Nikki Lundy [facility] MICROBIOLOGY - GENERAL OR DERABLES Final Result Performing Organization Address City/[facility]/ZIP Co de Phone Number [facility] [address] [place] [address], [place] [phone] * Chlamydia trachomatis and Neisseria gonorrhoeae molecular study (08/25/2024 10:10 AM EST) Pathologist [facility] Neisseria gonorrhoeae PCR Negative Negative LAB MOLECULAR DIAGNOSTICS METHOD 08/25/2024 2:29 PM EST [facility] Chlamydia trachomatis PCR Negative Negative LAB MOLECULAR DIAGNOSTICS METHOD 08/25/2024 2:29 PM EST [facility] Swab Cervix uteri structure / Unknown Non-blood Collection / Unknown 08/25/2024 10:10 AM EST 08/25/2024 11:52 AM EST Nikki Lundy [facility] MICROBIOLOGY - GENERAL OR DERABLES Final Result Performing Organization Address City/[facility]/ZIP Co de Phone Number [facility] [address] [place] [address], [place] [phone] * Wet prep, genital (08/25/2024 10:10 AM EST) Clue Cells, Wet Prep Negative Negative 08/25/2024 1:22 PM EST [facility] Yeast, Wet Prep Negative Negative 08/25/2024 1:22 PM EST [facility] Trichomonas, Wet Prep Indeterminate Negative 08/25/2024 1:22 PM EST [facility] Comment:Refer to Trichomonas antigen. Swab Vaginal structure / Unknown Non-blood Collection / Unknown 08/25/2024 10:10 AM EST 08/25/2024 11:52 AM EST [facility] MICROBIOLOGY - GENERAL OR DERABLES Final Result Performing Organization Address [facility]/ZIP Co de Phone Number [facility] [address] [place] [address], [place] [phone] * Culture urine (08/25/2024 10:10 AM EST) Pathologist [facility] Culture, Urine No growth 08/26/2024 11:15 AM EST [facility] Urine Urine specimen obtained by clean catch procedure / Unknown Non-blood Collection / Unknown 08/25/2024 10:10 AM EST 08/25/2024 11:53 AM EST [facility] MICROBIOLOGY - GENERAL OR DERABLES Final Result [facility] [address] [place] [address], [place] [phone] * (ABNORMAL) POC Urine Auto W/O Micro (08/25/2024 10:01 AM EST) Leukocytes UA POC Negative Negative Nitrite UA POC Negative Negative Urobilinogen UA POC Negative Negative Protein UA POC Negative Negative PH UA POC 5.0 5.0 - 9.0 Blood UA POC Trace(A) Negative, Trace Specific [place] UA POC 1.025 1.001 - 1.035 Ketones UA POC Negative Negative Bilirubin UA POC Negative Negative Glucose UA POC Normal Normal, Trace Urine Urine specimen obtained by clean catch procedure / Unknown 08/25/2024 10:01 AM EST Nikki Lundy [facility] POINT OF CARE TEST ENTER/EDIT ORDERABLES Final Result * HIV Screening (11/26/2023) Pathologist [facility] HIV Screening abstracted Historical Provider HEALTH MAINTENANCE Final Result * Hepatitis C Screening (11/26/2023) Pathologist [facility] Hepatitis C Screening abstracted Result [facility] Historical Provider HEALTH MAINTENANCE Final Result * Cervical Cancer Screening: HPV (04/14/2020) Pathologist [facility] Cervical Cancer Screening: HPV abstracted, negative Historical Provider HEALTH MAINTENANCE Final Result from Last 3 Months or Most Recently Relevant to Health Maintenance Insurance [facility] Care Teams Fox Raiser Relationship Specialty Start Date End Date Brodie Gonzalez NP [address] [facility] [place] PCP - General Family Medicine 07/27/24
--- OUTSIDE RECORDS SUMMARY | 2024-09-21 13:10 | XMS_ITS | Encounter Summary ---
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 Coach Name Role Phone Brodie Gonzalez NP Primary Care Provider Reason for Visit * Reason Comments Vaginitis/Bacterial Vaginosis Encounter Details Date Type Department Care Team (Late st Contact Info) Description 08/25/2024 9:45 AM EST Office Visit Obstetrics & Gynecology - [address] [id number] Kamron Nikki, [facility] [address] [place] [id number] Vaginal irritation (Primary Dx); Screen for STD (sexually transmitted disease); Urinary frequency Social History Tobacco Use Types Packs/Day Years [...] on file Sexual Orientation Not on file documented as of this encounter Last Filed Vital Signs Vital Sign Reading [...] Mass Index 29 08/25/2024 9:47 AM EST documented in this encounter Ordered Prescriptions Prescription Sig Dispense Quantity Refills Last Filled Start Date End Date doxycycline (VIBRAMYCIN) 100 mg capsule Take 1 capsule (100 mg total) by mouth 2 (two) times a day for 7 days. Take with at least 8 ounces (large glass) of water, do not lie down for 30 minutes after 14 capsule 08/25/2024 5 documented in this encounter Progress Notes * Blair Pak MA - 08/25/2024 9:45 AM EST Pt here c/o vaginal itchiness for 1wk ANGELLA: neg NIT: neg URO: 0.2 PRO: neg PH: 5.0 BLO: trace S.025 KET: neg REGINE: neg GLU: neg * Nikki Lundy CNM - 08/25/2024 9:45 AM EST Chief Complaint Patient presents with Vaginitis/Bacterial Vaginosis Subjective Chief complaint: Lilian Serra 44 y.o. female complains of vaginal discharge/itch. HPI: Symptoms reported: vaginal discharge and vaginal itching Onset:: one month ago Course: intermittent Progression: worsened She is in an off/on relationship for the past 3-5 yrs and reports a hx of chlamydia. Not consistentwith condom use. She also reports ongoing urine frequency for the past week with RLQ pain Helpful treatments: none Unhelpful treatments tried: none Objective Physical Exam: General Appearance: alert and oriented, in no acute distress Abdomen: soft, non-tender; bowel sounds normal; no masses, no organomegaly Pelvic Exam: external genitalia normal, uterus normal size, shape, and consistency, no cervical motion tenderness, cervix normal in appearance, NO adnexal masses, RLQ pain on bimanual exam. , and positive findings: vaginal discharge: white and thick Urine dipstick: positive for RBCs. Assessment/Plan Vaginal irritation (Primary) - Wet prep, genital - Chlamydia trachomatis and Neisseria gonorrhoeae molecular study - POC Urine Auto W/O Micro Screen for STD (sexually transmitted disease) - Wet prep, genital - Chlamydia trachomatis and Neisseria gonorrhoeae molecular study Urinary frequency - POC Urine Auto W/O Micro - Culture urine Other orders - doxycycline (VIBRAMYCIN) 100 mg capsule; Take 1 capsule (100 mg total) by mouth 2 (two) times a day for 7 days. Take with at least 8 ounces (large glass) of water, do not lie down for 30 minutes after Dispense: 14 capsule; Refill: 0 Problem List Items Addressed This Visit None Visit Diagnoses Vaginal irritation - Primary Relevant Orders Wet prep, genital Chlamydia trachomatis and Neisseria gonorrhoeae molecular study POC Urine Auto W/O Micro (Completed) Screen for STD (sexually transmitted disease) Relevant Orders Wet prep, genital Chlamydia trachomatis and Neisseria gonorrhoeae molecular study Urinary frequency Relevant Orders POC Urine Auto W/O Micro (Completed) Culture urine Safe sex counseling,. Vaginal hygiene counseling Doxycyline for suspected PID Pending results will adjust treatment if needed. Nikki Lundy CNM documented in this encounter Plan of Treatment Upcoming Encounters Date Type Department Care Team (Late st Contact Info) Description 09/25/2024 8:45 AM EST Office Visit Obstetrics & Gynecology - [facility] [address] [place] [id number] Nikki Lundy CNM [address] [place] [address] 10/08/2024 9:30 AM EST Consult Orthopedic Surgery - [address] [phone] Srikanth Calvin DPM [address] [address] documented as of this encounter Procedures Procedure Name Priority Date/Time Associated Diagnosis Comments TRICHOMONAS VAGINALIS ANTIGEN Routine 08/25/2024 10:10 AM EST Vaginal irritation Screen for STD (sexually transmitted disease) CHLAMYDIA TRACHOMATIS AND NEISSERIA GONORRHOEAE PCR Routine 08/25/2024 10:10 AM EST Vaginal irritation Screen for STD (sexually transmitted disease) WET PREP, GENITAL Routine 08/25/2024 10: 10 AM EST Vaginal irritation Screen for STD (sexually transmitted disease) CULTURE URINE Routine 08/25/2024 10:10 AM EST Urinary frequency POC URINE AUTO W/O MICRO Routine 08/25/2024 10:01 AM EST Vaginal irritation Urinary frequency documented in this encounter Results * Trichomonas vaginalis antigen (08/25/2024 10:10 AM EST) Trichomonas vaginalis Negative Negative 08/25/2024 1:32 PM EST [facility] Swab Vaginal structure / Unknown Non-blood Collection / Unknown 08/25/2024 10:10 AM EST 08/25/2024 11:52 AM EST Nikki Lundy [facility] MICROBIOLOGY - GENERAL OR DERABLES Final Result Performing Organization Address City/[facility]/ZIP Co de Phone Number [facility] [address] [place] [address], [place] [phone] * Culture urine (08/25/2024 10:10 AM EST) Pathologist [facility] Culture, Urine No growth 08/26/2024 11:15 AM EST [facility] Urine Urine specimen obtained by clean catch procedure / Unknown Non-blood Collection / Unknown 08/25/2024 10:10 AM EST 08/25/2024 11:53 AM EST [facility] MICROBIOLOGY - GENERAL OR DERABLES Final Result [facility] [address] [place] [address], [place] [phone] * Chlamydia trachomatis and Neisseria gonorrhoeae molecular study (08/25/2024 10:10 AM EST) Neisseria gonorrhoeae PCR Negative Negative LAB MOLECULAR DIAGNOSTICS METHOD 08/25/2024 2:29 PM EST [facility] Chlamydia trachomatis PCR Negative Negative LAB MOLECULAR DIAGNOSTICS METHOD 08/25/2024 2:29 PM EST [facility] Swab Cervix uteri structure / Unknown Non-blood Collection / Unknown 08/25/2024 10:10 AM EST 08/25/2024 11:52 AM [facility] GENERAL OR DERABLES Final Result Performing Organization Address [facility]/ZIP Co de Phone Number [facility] [address] [place] [address], * Wet prep, genital (08/25/2024 10:10 AM EST) Clue Cells, Wet Prep Negative Negative 08/25/2024 1:22 PM EST [facility] Yeast, Wet Prep Negative Negative 08/25/2024 1:22 PM EST [facility] Trichomonas, Wet Prep Indeterminate Negative 08/25/2024 1:22 PM EST [facility] Comment:Refer to Trichomonas antigen. Swab Vaginal structure / Unknown Non-blood Collection / Unknown 08/25/2024 10:10 AM EST 08/25/2024 11:52 AM EST [facility]CRO[facility] - GENERAL OR DERABLES Final Result Performing Organization Address City/[facility]/ZIP Co de Phone Number [facility] [address] [place] [address], * (ABNORMAL) POC Urine Auto W/O Micro (08/25/2024 10:01 AM EST) Leukocytes UA POC Negative Negative Nitrite UA POC Negative Negative Urobilinogen UA POC Negative Negative Protein UA POC Negative Negative PH UA POC 5.0 5.0 - 9.0 Blood UA POC Trace(A) Negative, Trace Specific [place] UA POC 1.025 1.001 - 1.035 Ketones UA POC Negative Negative Bilirubin UA POC Negative Negative Glucose UA POC Normal Normal, Trace Urine Urine specimen obtained by clean catch procedure / Unknown 08/25/2024 10:01 AM EST Nikki Lundy CNM POINT OF CARE TEST ENTER/EDIT ORDERABLES Final Result documented in this encounter Visit Diagnoses Diagnosis Vaginal irritation- Primary Pruritus of genital organs Screen for STD (sexually transmitted disease) Screening examination for venereal disease Urinary frequency documented in this encounter Care Teams Baseball Coach Relationship Specialty Start Date End Date Brodie Gonzalez NP [address] [place], [place] PCP - General Family Medicine 07/27/24 documented as of this encounter
[2024-09-21 13:12] VITALS: BP 132/80; PULSE 96; TEMP 37.1; O2SAT 97; BMI 30.6
--- NOTE | 2024-09-21 13:12 | A.OFFPC_ITS ---
Vital Signs 09/21/24 13:12 Height 5 ft 1 in Weight 162 lb BMI 30.6 BP 132/80 Blood Pressure Location Rt brachial Position Sitting Pulse 96 Pulse Source Pulse Oximeter Temp 98.8 F Temp Source Oral Pulse Oximetry (%) 97 Oxygen Delivery Method Room Air Intake Visit Reasons: Annual PE Allergies LOTION Allergy (Intermediate, Uncoded 09/21/24 13:13) facial rash TUNA FISH Allergy (Intermediate, Uncoded 09/21/24 13:13) facial rash Medication List - Last Reconciled 09/21/24 by Brodie Gonzalez [facility] albuterol sulfate 90 mcg/actuation 1 inh inhalation QID PRN 30 days Donut pillow As directed Tobacco use date assessed: 09/21/24 Dental Screening Dental Screen Date: 09/21/24 Did you have a dental visit in the last 12 months?: Yes Did you have a dental problem in the last 6 months where you did not have access to dental care?: No Was dental information given to patient?: Patient has dentist HPI Annual PE HPI Details History of Present Illness The patient is a 44-year-old female presenting with concerns regarding breast lesions and dermatitis. She reports darker lesions in the areola region of the left breast, predominantly at the 2 o'clock and 4 o'clock positions. She has noticed small papular lesions and a cystic lesion around the 4 o'clock area. Additionally, she has ongoing dermatitis on her feet, characterized by redness on the arch of the left foot. The patient believes she has been picking at the affected area on her foot. There are no signs of active infection. She also highlights a history of depression, evidenced by her scoring on the PHQ-9 test. Previously, she was engaging with a therapist who has since moved away, and she currently lacks therapeutic support. Health Maintenance - Plan to perform diagnostic left breast mammogram and ultrasound. - Patient advised to consult her gynecol ogist about breast health. Social History Review of Systems - Neurological: Denies dizziness. - Respiratory: Denies shortness of breat h. - Cardiovascular: Denies chest pain. - Gastrointestinal: Denies constipation, diarrhea, or changes in stool. - Constitutional: Denies fever or chills . - Psychological: Denies suicidal or homi cidal ideation. Physical Exam General: Cooperative, healthy appearing, comfortable, no acute distress and well developed Orientation: Patient oriented x3 Limitations: No limitations Head: Normal to inspection breast: cystic lesion palpable to left areola region, approx 3 oclock position, slightly tender with touch. Ears: Hearing grossly normal bilaterally Nose: Normal external nose present Face and sinus: Normal facial exam Eyes: Appearance normal, both eyes and all related structures Neck: Normal visual inspection and Yes full ROM Respiratory: Normal respiratory effort and able to speak in complete sentences. Clear to auscultation bilaterally Cardiovascular: Regular rate and rhythm. Normal S1 and S2 GI: Normal to inspection. Soft to palpation and nontender Skin: No rashes or lesions noted except for ongoing dermatitis on the left foot arch, with redness present. No active signs of infection noted. Neuro: Patient oriented x3 Extremities: Normal to inspection except for ongoing dermatitis on the left foot arch. Results mammo up to date Plan - Prescribe a combination cream containi ng betamethasone and an antifungal to manage the dermatitis on the foot. - Arrange for a diagnostic left breast m ammogram and ultrasound to further assess the breast lesions. - Contact the behavioral health team to assist in connecting the patient with a new therapist. Patient was informed and verbally consented to the use of an ambient scribe for clinic note documentation during this visit. Discussion Notes I advised the patient about the importance of evaluating the breast lesions f urther with a mammogram and ultrasound. We discussed the usage of a betamethasone-antifungal cream for her dermatitis, emphasizing this choice to reduce inflammation and prevent fungal growth. The patient expressed a need for mental health support following her therapist's relocation, and I committed to facilitating a connection with a new therapist through our behavioral health team. Patient Instructions - Apply the prescribed cream to the affe cted area on the left foot as directed. - Await contact from the behavioral heal th team for assistance with mental health support. - Follow up with the machine taper regard ing breast health and screening. - Contact medical services if symptoms w orsen or new symptoms arise. [facility] Medical History Acute cystitis Fatigue Coccygeal pain Anxiety Left shoulder pain Surgical History No pertinent past surgical history Social History Housing: House Alcohol intake: former Year quit: 2006 Patient Tobacco Use Status: Former Tobacco user Years Smoked: quit 12/2005 e-Cigarette/Vaping Use: Never Used Second Hand Smoke Exposure: Yes Substance Use Type: Marijuana service: No Current occupational status: unemployed Cognitive needs: No Hearing needs: No Vision needs: No Questionnaire PHQ-9 Over the last 2 weeks, how often have you been bothered by any of the following problems? 1. Little interest or pleasure in doing things: not at all 2. Feeling down, depressed, or hopeless: nearly every day 3. Trouble falling or staying asleep, or sleeping too much: nearly every day 4. Feeling tired or having little energy: nearly every day 5. Poor appetite or overeating: nearly every day 6. Feeling bad about yourself - or that you are a failure or have let yourself or your family down: nearly every day 7. Trouble concentrating on things, such as reading the newspaper or watching television: nearly every day 8. Moving or speaking so slowly that other people could have noticed. Or the opposite - being so fidgety or restless that you have been moving around a lot more than usual: nearly every day 9. Thoughts that you would be better off or of hurting yourself in some way: several days Total score: 22 Depression Screening Interpretation: Positive (denies any si or hi, will have braxton contact pt. ) Depression Screening Follow-up: Existing condition Depression Screening Done: Yes 11699 - PHQ-9 Billing: Yes Source: Developed by Drs. Trevor Brar, Jenniffer Carrion, Felix Segovia and colleagues, with an educational naif from [employer]. Thrive Questionnaire Date Thrive assessed: 09/21/24 I am a: Patient What is your living situation today?: I have a steady place to live Within the past 12 months, did the food you bought not last and you didn't have the money to get more?: Sometimes True Within the past 12 months, did you worry whether your food would run out before you got money to buy more?: Sometimes True Do you have trouble paying for medicines?: No Do you have trouble getting transportation to medical appointments?: No Do you have trouble paying your heating and electricity bill?: No Do you have trouble taking care of your child, family member or friend?: No Do you have trouble with day-to-day activities such as bathing, preparing meals, shopping, managing finances, etc.?: Yes Are you currently unemployed and looking for a job?: No Are you interested in more education?: No Please select the resources that you would like help with: None Currently or been in a relationship where the following occur: No concerns reported THRIVE Score: 2 AUDIT C Alcohol Use Questionnaire (AUDIT-C) 1. How often do you have a drink containing alcohol?: Never 3. How often do you have six or more drinks on one occasion?: Never Total Score: 0 Score Reviewed/Action Taken: Yes PEDRO-7 AMB Questionnaire PEDRO-7 Date PEDRO - 7 assessed: 09/21/24 Feeling nervous, anxious, or on edge: 3 = Nearly every day Not being able to stop or control worryin = Nearly every day Worrying too much about different things: 3 = Nearly every day Trouble relaxin = Nearly every day Being so restless that it is hard to sit still: 3 = Nearly every day Becoming easily annoyed or irritable: 3 = Nearly every day Feeling afraid as if something awful might happen: 2 = More than half the days Total PEDRO-7 score (0-4 normal; 5-9 mild; 10-14 moderate; 15-21 severe): 20 Source: Developed by Drs. Trevor Brar, Jenniffer Carrion, Felix Segovia and colleagues, with an educational naif from [employer]. PEDRO-7 Assessment Billing PEDRO-7 Assessment Tool: PEDRO-7 Assessment 38651 (therapist requested, will have our team reach out to pt, no active si or hi) Physical exam (Primary Care) Vital Signs: Last Vital Signs Temp 98.8 F 09/21/24 13:12 Pulse 96 09/21/24 13:12 BP 132/80 09/21/24 13:12 Pulse Ox 97 09/21/24 13:12 Oxygen Delivery Method Room Air 09/21/24 13:12 BMI result Body Mass Index 30.6 Tobacco/Smoking Status: Tobacco use Status Tobacco use date assessed 09/21/24 09/21/24 13:18 Patient Tobacco Use Status Former Tobacco user 09/21/24 13:18 e-Cigarette/Vaping Use Never Used 09/21/24 13:18 PHQ-9: PHQ-9 Score PHQ-9: Total score 22 09/21/24 13:18 Depression Screening Interpretation: Positive (denies any si or hi, will have braxton contact pt. ) Depression Screening Follow-up: Existing condition Thrive Assessment: Date of Thrive Assessment Date Thrive assessed 09/21/24 09/21/24 13:18 Currently or been in a relationship where the following occur: No concerns reported Coding Level of Care Code Est Pt Prev Care 40-64y(38569) Diagnoses Encounter for routine adult physical exam with abnormal findings Z00. Breast lump N63.0 Additional Codes PHQ-9 - 16552 - PHQ-9 Billing: Yes ([id number]) PEDRO-7 Assessment Billing - PEDRO-7 Assessment Tool: PEDRO-7 Assessment 34149 ([id number]) Assessment & Plan Assessment & Plan (1) Encounter for routine adult physical exam with abnormal findings: Code(s): Z. - Encounter for general adult medical examination with abnormal findings Category: Medical (2) Breast lump: Code(s): N63.0 - Unspecified lump in unspecified breast Category: Medical Plan . Orders: Orders Comprehensive [place]. Panel Fast Today Z00. - Encounter for general adult medical examination with abnormal findings Lipid Panel Today Z00. - Encounter for general adult medical examination with abnormal findings US breast LT limited Today N63.0 - Unspecified lump in unspecified breast Complete Blood Count Auto Diff Today Z00. - Encounter for general adult medical examination with abnormal findings TSH reflex Free T4 Today Z00. - Encounter for general adult medical examination with abnormal findings UA CC w/rflx Micro + Cult Today Z00.01 - Encounter for general adult medical examination with abnormal findings MM tomosynthesis diagnostic LT Today N63.0 - Unspecified lump in unspecified breast Medications: New clotrimazole-betamethasone 1-0.05 % 1 appl topical BID 2 weeks 45 grams 0RF
== END 2024-09-21 14:19 | disposition home or self-care (01) ==
PROVIDERS: PCP Nurse Practitioner Family; Visit Provider Nurse Practitioner Family
DX: Z00.01 Encounter for general adult medical examination with abnormal findings (principal); N63.0 Unspecified lump in unspecified breast

== ENCOUNTER → 2024-09-21 13:08 | Outpatient (BNVA) | payer OTHER, SELFPAY | PROVIDERS: PCP Nurse Practitioner Family; Visit Provider Nurse Practitioner Family | DX: Z00.01 Encounter for general adult medical examination with abnormal findings (principal); N63.25 Unspecified lump in the left breast, overlapping quadrants; N64.4 Mastodynia | CPT/HCPCS: 96127; 99396 ==

== ENCOUNTER → 2024-10-22 10:30 | Outpatient (BNV) | payer OTHER, SELFPAY | PROVIDERS: PCP Nurse Practitioner Family; Visit Provider Internal Medicine | DX: R92.323 Mammographic fibroglandular density, bilateral breasts (principal) | CPT/HCPCS: 76642; 77062; 77066 ==

== ENCOUNTER 2024-10-22 10:32 | Outpatient (REF) | payer OTHER, SELFPAY ==
--- NOTE | ~2024-10-22 | US_ITS ---
EXAMINATION: MM DIAGNOSTIC DIGITAL BREAST TOMOSYNTHESIS, BILATERAL Limited left breast ultrasound. CLINICAL INFORMATION: Left breast] prominence on the left nipple area. These areas, and go and can be bilateral. COMPARISON: Mammography: Comparison is made with relevant prior exams. TECHNIQUE: Digital breast mammography with tomosynthesis is performed in both the craniocaudal and mediolateral oblique views along with computer-aided detection (CAD). FINDINGS: There are scattered areas of fibroglandular density (ACR BI-RADS breast composition Category b). BB marker in the area of the nipple without underlying abnormality. There are no significant masses, abnormal calcifications, or other abnormalities. Targeted color Doppler ultrasound scanning in the area of the patient's clinically red bumps along the left areola demonstrates normal retroareolar breast tissue. There is a hypoechoic ill-defined area which could indicate a skin lesion versus normal skin measuring 5 x 2 mm on the areola at 3:00. This could represent a sebaceous cyst/epidermal inclusion cysts versus Briggs tubercle. Results are provided to the patient at time of visit by the technologist. US/US breast LT limited mamm only IMPRESSION: No mammographic or sonographic abnormality within the breasts to account for the patient's superficial clinical concern on her left areola. Question skin lesion in the area of palpable lump correlating with the patient's palpable lump. Question sebaceous cyst/epidermal inclusion cyst versus no Briggs tubercle. Recommend breast surgical consultation for clinical evaluation and follow-up. ASSESSMENT: BI-RADS BI-RADS 2 - Benign Findings RECOMMENDATION: 1 year F/U This patient's information was entered into a reminder system with a target due date for their next mammogram. Electronically signed by: Deepali Thibodeaux DO 10/22/2024 12:36 PM EDT
== END 2024-10-22 10:33 | disposition home or self-care (01) ==
LOC: HO.MAMMO 10:32
PROVIDERS: PCP Nurse Practitioner Family; Visit Provider Nurse Practitioner Family
DX: N63.25 Unspecified lump in the left breast, overlapping quadrants (principal)
CPT/HCPCS: 76642; 77062; 77066

== ENCOUNTER 2024-10-28 10:52 | Outpatient (REF) | payer OTHER, SELFPAY ==
[2024-10-28 11:14] LABS: MANUAL DIFF FLAG NO
[2024-10-28 11:22] LABS: Basophils Absolute Auto 0.1 X10*3/uL (0.0-0.2); Basophils Percent Auto 0.8 % (0-2); Eosinophils Absolute Auto 0.3 X10*3/uL (0.0-0.4); Eosinophils Percent Auto 3.7 % (0-4); Hematocrit 36.5 % (37.0-47.0); Hemoglobin 12.4 g/dl (12.0-16.0); Imm Gran Abs Auto 0.02 X10*3/uL (0.00-0.03); Imm Gran Pct Auto 0.2 % (0.0-0.4); Lymphocytes Absolute Auto 3.6 X10*3/uL (1.2-4.9); Mean Corpuscular Hemoglobin 24.5 pg (27.0-33.0); Mean Platelet Volume 8.3 fL (9.4-12.3); Monocytes Absolute Auto 0.6 X10*3/uL (0.1-1.2); Monocytes Percent Auto 6.5 % (2-11); Neutrophils Absolute Auto 4.6 x10*3/uL (2.0-8.3); Neutrophils Percent Auto 49.8 % (45-73); Platelet Count 267 X10*3/uL (160-400); Red Blood Count 5.07 X10*6/uL (4.20-5.50); White Blood Count 9.3 X10*3/uL (4.8-10.8)
[2024-10-28 11:54] LABS: Appearance Urine Clear; Color Urine Yellow; Glucose Urine UA Negative (Negative); Leukocyte Esterase Urine Negative (Negative); Nitrite Urine Negative (Negative); Specific Gravity - Urine 1.015 (1.005-1.025); Urine Blood Negative (Negative); Urine Ketones Negative (Negative); Urine Protein Negative (Neg-Trace)
[2024-10-28 12:17] LABS: Alanine Aminotransferase 16 U/L (0-31); Albumin Level 3.8 g/dL (3.5-5.0); Alkaline Phosphatase 72 U/L (39-117); Anion Gap 7 (12-20); Aspartate Amino Transferase 22 U/L (5-31); Bilirubin Total 0.3 mg/dL (0.0-1.0); Blood Urea Nitrogen 7 mg/dL (9-16); Calcium 8.6 mg/dL (8.4-10.2); Carbon Dioxide 26 mmol/L (22-29); Chloride 110 mmol/L (96-108); Cholesterol 194 mg/dL (<200); Estimated Glomerular Filt Rate > 60; Glucose Fasting 95 mg/dL (60-99); HDL Cholesterol 54 mg/dL (>40); LDL Cholesterol Calculated 125 mg/dL (<100); Sodium 139 mmol/L (135-145); Total Protein 6.7 g/dL (6.5-8.0); Triglycerides 76 mg/dL (<150)
[2024-10-28 12:18] LABS: TSH reflex Free T4 2.02 uIU/mL (0.32-4.0)
== END 2024-10-28 10:53 | disposition home or self-care (01) ==
LOC: HO.LAB 10:52
PROVIDERS: PCP Nurse Practitioner Family; Visit Provider Nurse Practitioner Family
DX: Z00.01 Encounter for general adult medical examination with abnormal findings (principal); Z13.220 Encounter for screening for lipoid disorders; Z13.29 Encounter for screening for other suspected endocrine disorder
CPT/HCPCS: 36415; 80053; 80061; 81003; 84443; 85025

== ENCOUNTER 2024-11-26 10:12 | Outpatient (AMB) | payer OTHER, SELFPAY ==
[2024-11-26 10:39] VITALS: BP 130/80; PULSE 82; TEMP 36.9; O2SAT 98; BMI 31.0
--- NOTE | 2024-11-26 10:39 | AM.OFFWIN_ITS ---
Intake Vital Signs 11/26/24 10:39 Height 5 ft 1 in Weight 164 lb BMI 31.0 BP 130/80 Blood Pressure Location Rt brachial Position Sitting Pulse 82 Pulse Source Pulse Oximeter Temp 98.4 F Temp Source Oral Pulse Oximetry (%) 98 Oxygen Delivery Method Room Air Intake Visit Reasons: EP RT ear pain/pulsating? Anxiety Intake Note: Patient here for right ear pulsating that has been on and off. Patient Tobacco Use Status: Former Tobacco user Allergies LOTION Allergy (Intermediate, Uncoded 11/26/24 10:41) facial rash TUNA FISH Allergy (Intermediate, Uncoded 11/26/24 10:41) facial rash Do you need a note to return to daycare/school/sports/work: No HPI HPI Comments History of Present Illness Details History - The patient is a 44-year-old female pr esenting with ear discomfort and pulsing in her right ear. The pulsing started this morning, characterized by pulsating e pisodes lasting several hours, without hearing changes, ear pain or fever. She reports chronic reduced hearing acuity in the left ear for the last decade. Attempted symptom relief through chewing failed, causing discomfort. The patient additionally experiences dry eyes, exacerbated today. There is a self-reported history of potential allergies arising in recent years, though not clinically confirmed. Despite clearing nasal passages, no significant congestion was reported. - She also has suffered from some life s tressors and history of panic attacks are documented, she had a recent break up with a significant other which involved a restraining order and court visits and all that recently unfolded and ended earlier this week. So she is feeling very anxious overall of those events. 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 - She also has concerns regarding herpes labialis and an HPV diagnosis. - She describes occasional fluid-filled blisters developing at the lip's corner or side. Her former sig other reportedly has episodes of blisters on his lips and she thinks she caught it from him. She uses Carmex with some relief. - The patient is also distressed after r eceiving a notification about HPV, concerned about potential cancer despite prior tests showing no cancer. Physical Exam General: Cooperative, healthy appearing, comfortable and no acute distress Orientation/consciousness: Patient oriented x3 Limitations: No limitations Head: Normal to inspection Ears: Hearing grossly normal bilaterally, external ears normal and TM's normal bilaterally. Nose: Normal external nose present, Normal nares present and No nasal discharge present Face and sinus: Normal facial exam and Yes sinuses nontender Mouth: Normal oral and palatal mucosa present and moist mucous membranes. Throat: Yes tonsils normal, Yes uvula midline. Posterior oropharynx erythema, slight erythema and cobblestoning Eyes: Appearance normal, both eyes and all related structures. Neck: Normal visual inspection Respiratory: Normal respiratory effort, able to speak in complete sentences, no respiratory distress, not tachypneic, no tripod positioning and no use of accessory muscles Skin: No rashes or lesions noted Neuro: Patient oriented x3 Extremities: Normal to inspection and Yes no clubbing, cyanosis or edema [facility] Medical History Acute cystitis Fatigue Coccygeal pain Anxiety Left shoulder pain Surgical History No pertinent past surgical history Social History Housing: House Alcohol intake: former Year quit: 2005 Patient Tobacco Use Status: Former Tobacco user Years Smoked: quit 12/2005 e-Cigarette/Vaping Use: Never Used Second Hand Smoke Exposure: Yes Substance Use Type: Marijuana service: No Current occupational status: unemployed Cognitive needs: No Hearing needs: No Vision needs: No Review of Systems Const All systems reviewed & are unremarkable except as noted in HPI and below Physical Exam Vital Signs: Last Vital Signs Temp 98.4 F 11/26/24 10:39 Pulse 82 11/26/24 10:39 BP 130/80 11/26/24 10:39 Pulse Ox 98 11/26/24 10:39 Oxygen Delivery Method Room Air 11/26/24 10:39 BMI result Body Mass Index 31.0 Assessment & Plan Assessment & Plan (1) Seasonal allergies: Code(s): J30.2 - Other seasonal allergic rhinitis Plan: VSS, pt well appearing and PE remarkable for slight cobblestoning. Likely allergies, I will initiate treatment with Flonase nasal spray to reduce any allergic inflammation and fluid buildup. An oral antihistamine, such as chewable Zyrtec, is recommended to support symptom management, considering the patient's financial limitations. Pataday eye drops are prescribed for dry eyes. Current symptom assessment does not require antibiotics. Reevaluation will depend on symptom progression or persistence, necessitating further otologic examination if indicated. The patient is encouraged to seek confirmation from a pharmacist regarding the proper administration of terbinafine for her toenail fungal infection If her symptoms get worse, she should go to the emergency department for further workup. Patient was informed and verbally consented to the use of an ambient scribe for clinic note documentation during this visit (2) Anxiety: Code(s): F41.9 - Anxiety disorder, unspecified Plan: Patient has significant anxiety, has very much anxiety over her health as well. Reviewed multiple topics today about her health. For herpes labialis, swabbing of fully intact blisters if she develops one is advised for confirmation of diagnosis, with timely monitoring recommended. Concerning HPV, regular monitoring through future screenings like Pap smears. Anxiety regarding the diagnosis should be managed with continued strategies and reassurance. Medications: New fluticasone propionate 50 mcg/actuation administer into each nostril 1 spray intranasal Q12H 16 grams 0RF olopatadine 0.7% (Pataday Once Daily Relief) 1 drp ophthalmic (eye) Q24H PRN 5 mL 0RF itching cetirizine (Zyrtec) 10 mg PO DAILY 24 tabs 0RF Coding Level of Care Code Est Pt Level 4 (03643) Diagnoses Seasonal allergies J30.2 Anxiety F41.9
--- OUTSIDE RECORDS SUMMARY | 2024-11-26 11:43 | XMS_ITS | Clinical Summary ---
Author Organization [address] [place] [address] Address [address] [place] [address] Phone Care Team Providers Care Sales Trader Name Role Phone HannahBrodie yusuf Carly GIBBONS Primary Care Provider Allergies Active Allergy Reactions Criticality Noted Date Comments Other Anaphylaxis High 12/18/2022 Seafood Medications albuterol HFA (ProAir HFA) 90 mcg/actuation inhaler 11/30/2020 Active terbinafine (LamISIL) 250 mg tablet Take 1 tablet (250 mg total) by mouth 1 (one) time each day. 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 Irregular menses 11/03/2020 Overview (07/09/2024): Last Assessment & Plan: Urine test negative. Chronic pain 04/14/2019 Marijuana user 04/14/2019 Overview (07/09/2024): Stats she uses for anxiety and chronic pain Resolved Problems Problem Noted Date Diagnosed Date Resolved Date Vulvar irritation 02/10/2024 09/25/2024 Overview (07/09/2024): Last Assessment & Plan: Will send labs to ensure no evidence of infection. None on wet mount today. Chlamydia 08/26/2022 09/25/2024 Bacterial vaginosis 08/23/2022 09/25/19 25 Overview (07/09/2024): Last Assessment & Plan: Treated with metrogel. Labial cyst 10/12/2021 09/25/2024 Overview (07/09/2024): Last Assessment & Plan: Discussed that as cyst is very small and non-tender no intervention needed, however if cyst become larger or painful patient to return for I&D. Encounters Date Type Department Care Team Description 10/08/2024 9:30 AM EST Consult Orthopedic Surgery - [address] [id number] Srikanth Calvin DPM Pain in right foot (Primary Dx); Pain in left foot; Dermatophytosis of nail; Tinea pedis of both feet 09/25/2024 8:45 AM EST Office Visit Obstetrics & Gynecology - [facility] [address] [place] [id number] Nikki Lundy CNM Encounter for well woman exam with routine gynecological exam (Primary Dx); Screening breast examination; Screening for cervical cancer; Screen for STD (sexually transmitted disease); Anxiety, generalized from Last 3 Months Immunizations Name Administration Dates Next Due Hepatitis A-Hepatitis B Adul t (Twinrix) 18yo and older 11/29/2016,07/04/2016,05/25/2016 Td Tetanus diptheria, preser vative free (Tenivac) 7yo and older 03/26/2018 Surgical History Surgery Date Site/Laterality Comments SECTION [...] History of depression 12/12/2005 DX:History of depression Chlamydia 08/26/2022 Vulvar irritation 02/10/2024 Last Assessmen t & Plan: Will send labs to ensure no evidence of infection. None on wet mount today. Labial cyst 10/12/2021 Last Assessment & Plan: Discussed that as cyst is very small and non-tender no intervention needed, however if cyst become larger or painful patient to return for I&D. Bacterial vaginosis 08/23/2022 Last Assessm ent & Plan: Treated with metrogel. Family History Medical History Relation Name Comments [...] Livin g [address]if[address] Delivery Location:[facility] Last Filed Vital Signs Vital Sign Reading Time Taken Comments Blood Pressure 123/87 09/25/2024 8:56 AM EST Pulse 88 09/25/2024 8:56 AM EST Temperature - - Respiratory Rate - - Oxygen Saturation - - Inhaled Oxygen Concentration - - Weight 71.2 kg (157 lb) 10/08/2024 9:59 AM EST Height 156.2 cm (5' 1.5 ) 10/08/2024 9:59 AM EST Body Mass Index 29.19 10/08/2024 9:59 AM EST Plan of Treatment Upcoming Encounters Date Type Department Care Team (Late st Contact Info) Description 01/11/2025 9:30 AM EDT Office Visit Orthopedic Surgery - [place] [address] [facility] [address] [place] [phone] Srikanth Calvin, NICOLAS [address] [facility] [address] [place] [address] Health Maintenance Due Date Last Done Comments Depression Screening 07/07/2022 Social Influencers of Health Screening 07/07/2022 COVID-19 Vaccine (2023-2 5 season) 2024 Influenza Vaccine (Season Ended) 2025 Breast Cancer Screening 12/05/2025 12/06/2023 DTaP,Tdap,and Td Vaccines (2 - Td or Tdap) 03/26/2028 03/26/2018 Cervical Cancer Screening: HPV 09/25/2029 0 09/25/2024, 09/25/2024, 04/14/2020 Hepatitis A Vaccines Aged Out 11/29/2016, 07/04/2016, 05/25/2016 No longer eligible based on patient's age to complete this topic Hepatitis B Vaccines Completed 11/29/2016, 07/04/2016, 05/25/2016 HIV Screening Completed 10/08/2024, 11/26/2023 Hepatitis C Screening Completed 10/08/2024 , 11/26/2023 HIB Vaccines Aged Out No longer [...] age to complete this topic Meningococcal B Vaccine Aged Out No l onger eligible based on patient's age to complete [...] Procedure Name Priority Date/Time Associated Diagnosis Comments COMPREHENSIVE METABOLIC PANEL Routine 10/08/2024 10:19 AM EST Dermatophytosis of nail TREPONEMA PALLIDUM ANTIBODY WITH REFLEX TO RPR AND PARTICLE AGGLUTINATION Routine 10/08/2024 10:19 AM EST Encounter for well woman exam with routine gynecological exam Screen for STD (sexually transmitted disease) HIV 1, 2 ANTIBODY, P24 ANTIGEN WITH REFLEX TO DIFFERENTIATION Routine 10/08/2024 10:19 AM EST Encounter for well woman exam with routine gynecological exam Screen for STD (sexually transmitted disease) HEPATITIS C ANTIBODY Routine 10/08/2024 10:19 AM EST Encounter for well woman exam with routine gynecological exam Screen for STD (sexually transmitted disease) PAP SMEAR Routine 09/25/2024 9:17 AM EST Encounter for well woman exam with routine gynecological exam Screening for cervical cancer HPV GENOTYPE Routine 09/25/2024 9:17 AM EST Encounter for well woman exam with routine gynecological exam Screening for cervical cancer HPV WITH REFLEX GENOTYPE Routine 09/25/2024 9:17 AM EST Encounter for well woman exam with routine gynecological exam Screening for cervical cancer CHLAMYDIA TRACHOMATIS AND NEISSERIA GONORRHOEAE PCR Routine 09/25/2024 9:17 AM EST Encounter for well woman exam with routine gynecological exam Screen for STD (sexually transmitted disease) MG MAMMO DIGITAL DIAGNOSTIC BILAT Routine 12/06/2023 11:23 AM EDT from Last 3 Months or Most Recently Relevant to Health Maintenance Results * Hepatitis C antibody (10/08/2024 10:19 AM EST) Hepatitis C Antibody Negative Negative LAB CHEMISTRY METHOD 10/08/2024 4:27 PM EST [facility] Blood Venous blood specimen / Unknown Venipuncture / Unknown 10/08/2024 10:19 AM EST 10/08/2024 10:19 AM EST [facility] LAB BLOOD ORDERABLES Final Re sult [facility] [address] [place] [address], [place] [phone] * HIV 1,2 antibody, p24 antigen with reflex to differentiation (10/08/2024 10:19 AM EST) [facility] HIV Combo AB/AG Negative Negative LAB CHEMISTRY METHOD 10/08/2024 4:27 PM EST [facility] Blood Venous blood specimen / Unknown Venipuncture / Unknown 10/08/2024 10:19 AM EST 10/08/2024 10:19 AM EST Narrative [facility] - 10/08/2024 4:27 PM EST This assay is a 4th generation assay allowing for earlier detection of HIV infection by detecting the presence of the HIV-1 p24 antigen as well as the traditional antibodies to HIV type 1 (including group O) and type 2. ??Use of a 4th generation assay is the current CDC recommendation for HIV screening. [facility] LAB BLOOD ORDERABLES Final Re sult [facility] [address] [place] [address], [place] [phone] * Treponema pallidum antibody with reflex to RPR and particle agglutination (10/08/2024 10:19 AM EST) Pathologist [facility] T. Pallidum Antibodies Negative Negative LAB CHEMISTRY METHOD 10/08/2024 4:02 PM [facility] Blood Venous blood specimen / Unknown Venipuncture / Unknown 10/08/2024 10:19 AM EST 10/08/2024 10:19 AM EST Nikki Lundy CN LAB BLOOD ORDERABLES Final Re sult [facility] [address] [place] [address], * Comprehensive metabolic panel (10/08/2024 10:19 AM EST) Sodium 138 133 - 145 mmol/L LAB CHEMISTRY METHOD 10/08/2024 3:42 PM [facility] Potassium 4.1 3.5 - 5.5 mmol/L LAB CHEMISTRY METHOD 10/08/2024 3:42 PM [facility] Chloride 105 96 - 110 mmol/L LAB CHEMISTRY METHOD 10/08/2024 3:42 PM [facility] CO2 26 21 - 32 mmol/L LAB CHEMISTRY METHOD 10/08/2024 3:42 PM [facility] Anion Gap 7 3 - 11 LAB CHEMISTRY METHOD 10/08/2024 3:42 PM [facility] Glucose 85 70 - 100 mg/dL LAB CHEMISTRY METHOD 10/08/2024 3:42 PM [facility] BUN 7 5 - 25 mg/dL LAB CHEMISTRY METHOD 10/08/2024 3:42 PM [facility] Creatinine 0.69 0.50 - 1.10 mg/dL LAB CHEMISTRY METHOD 10/08/2024 3:42 PM [facility] eGFR 111 >=60 mL/min/1. 73m2 LAB CHEMISTRY METHOD 10/08/2024 3:42 PM [facility] Comment:Calculation based on the??Chronic Kidney Disease Epidemiology Collaboration (CKD-EPI) equation refit??without adjustment for race. BUN/Creatinine Ratio 10.1 LAB CHEMISTRY METHOD 10/08/2024 3:42 PM [facility] Calcium 9.3 8.5 - 10.5 mg/dL LAB CHEMISTRY METHOD 10/08/2024 3:42 PM [facility] AST (SGOT) 13 10 - 42 unit/L LAB CHEMISTRY METHOD 10/08/2024 3:42 PM [facility] ALT (SGPT) 16 10 - 60 unit/L LAB CHEMISTRY METHOD 10/08/2024 3:42 PM [facility] Alkaline Phosphatase 82 42 - 121 unit/L LAB CHEMISTRY METHOD 10/08/2024 3:42 PM [facility] Total Protein 7.2 6.0 - 8.0 g/dL LAB CHEMISTRY METHOD 10/08/2024 3:42 PM [facility] Albumin 3.7 3.2 - 5.0 g/dL LAB CHEMISTRY METHOD 10/08/2024 3:42 PM [facility] Total Bilirubin 0.3 0.0 - 1.4 mg/dL LAB CHEMISTRY METHOD 10/08/2024 3:42 PM [facility] Blood Venous blood specimen / Unknown Venipuncture / Unknown 10/08/2024 10:19 AM EST 10/08/2024 10:19 AM EST Srikanth Calvin DP LAB BLOOD ORDERABLES Final Result [facility] [address] [place] [address], [place] [phone] * HPV genotype (09/25/2024 9:17 AM EST) HPV Type 16 Negative Negative LAB MICROBIOLOGY METHOD 10/02/2024 2:02 PM [facility] HPV Type 18/45 Negative Negative LAB MICROBIOLOGY METHOD 10/02/2024 2:02 PM [facility] HPV Type 16,18, and others Valid LAB MICROBIOLOGY METHOD 10/02/2024 2:02 PM EST [facility] Brushing/Spatula Cervix uteri structure / Unknown 09/25/2024 9:17 AM EST 09/28/2024 6:24 AM EST Nikki TSE LAB MOLECULAR DIAGNOSTICS ORD ERABLES Final Result Performing Organization Address City/[facility]/ZIP Co de Phone Number [facility] [address] [place] [address], [place] [phone] * (ABNORMAL) HPV with reflex genotype (09/25/2024 9:17 AM EST) HPV Positive( A) Negative LAB MICROBIOLOGY METHOD 09/28/2024 3:13 PM EST [facility] Brushing/Spatula Cervix uteri structure / Unknown 09/25/2024 9:17 AM EST 09/28/2024 6:24 AM EST Nikki TSE LAB MOLECULAR DIAGNOSTICS ORD ERABLES Final Result Performing Organization Address City/[facility]/ZIP Co de Phone Number [facility] [address] [place] [address], [place] [phone] * Chlamydia trachomatis and Neisseria gonorrhoeae molecular study (09/25/2024 9:17 AM EST) Neisseria gonorrhoeae PCR Negative Negative LAB MOLECULAR DIAGNOSTICS METHOD 09/26/2024 9:34 AM EST [facility] Chlamydia trachomatis PCR Negative Negative LAB MOLECULAR DIAGNOSTICS METHOD 09/26/2024 9:34 AM EST [facility] Swab Cervix uteri structure / Unknown Non-blood Collection / Unknown 09/25/2024 9:17 AM EST 09/25/2024 4:20 PM EST Nikki TSE LAB MICROBIOLOGY - GENERAL OR DERABLES Final Result Performing Organization Address [facility] Co de Phone Number [facility] [address] [place] [address], * Pap smear (09/25/2024 9:17 AM EST) Interpretation Negative for intraepithelial lesion or malignancy 09/30/2024 2:24 PM EST [facility] General Categorization Negative 09/30/2024 2:24 PM EST [facility] Other Findings Shift in betty suggestive of bacterial vaginosis 09/30/2024 2:24 PM EST [facility] LMP 09/07/2024 09/30/2024 2:24 PM EST [facility] Specimen Adequacy Satisfactory for evaluation, endocervical/cavazos sformation zone component absent 09/30/2024 2:24 PM EST [facility] Pap Methodology Liquid Based Pap Test 09/30/2024 2:24 PM EST [facility] Disclaimer The Pap test is a screening test which carries an inherent false negative rate. These test results should be correlated with the patient's clinical findings and history. This Pap test was processed using an automated screening system. Technical cytopathology services provided by [facility], at [address] [place] [id number] (CLIA # [id number]/Mitzi Kessler MD, Control Clerk Repairs.) 09/30/2024 2:24 PM EST [facility] Console Pap Interpretation Reported 09/30/2024 2:24 PM [facility] Brushing/Spatula Cervix uteri structure / Unknown 09/25/2024 9:17 AM EST 09/28/2024 6:24 AM EST Nikki TSE LAB CYTOLOGY ORDERABLES Final Result YENI ASTORGA [place] ([facility]) [facility] [address] [place] [address], * MG Mammo Digital Diagnostic bilat (12/06/2023 11:23 AM EDT) Anatomical Region Laterality Modality Breast Bilateral Mammography us Historical Provider MD MONTIEL BI PROCEDURES Final R esult from Last 3 Months or Most Recently Relevant to Health Maintenance Insurance [facility] [place] [employer] Care Teams Sales Trader Relationship Specialty Start Date End Date Brodie Gonzalez NP [address] [place], [place] PCP - General Family Medicine 07/27/24
== END 2024-11-26 11:35 | disposition home or self-care (01) ==
PROVIDERS: PCP Nurse Practitioner Family; Visit Provider Physician Assistant
DX: J30.2 Other seasonal allergic rhinitis (principal); F41.9 Anxiety disorder, unspecified

== ENCOUNTER → 2024-11-26 10:12 | Outpatient (BNVA) | payer OTHER, SELFPAY | PROVIDERS: PCP Nurse Practitioner Family; Visit Provider Physician Assistant | DX: J30.2 Other seasonal allergic rhinitis (principal); F41.9 Anxiety disorder, unspecified | CPT/HCPCS: 99212 ==

== ENCOUNTER 2025-01-20 11:35 | Outpatient (AMB) | payer OTHER, SELFPAY ==
[2025-01-20 11:40] VITALS: BP 108/62; PULSE 80; O2SAT 96; BMI 30.8
--- NOTE | 2025-01-20 11:40 | MHC.PC.OV ---
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 Required: No Accompanied by: Self / Same As Patient Allergies LOTION Allergy (Intermediate, Uncoded 01/20/25 11:52) facial rash TUNA FISH Allergy (Intermediate, Uncoded 01/20/25 11:52) facial rash Medication List - Last Reconciled 01/20/25 by DEBRA MaP- albuterol sulfate 90 mcg/actuation 1 inh inhalation QID PRN 30 days Donut pillow As directed fluticasone propionate 50 mcg/actuation 1 spray intranasal Q12H ketoconazole 2% 1 appl topical loratadine (Allergy Relief (loratadine)) 10 mg (10 mL) PO DAILY PRN olopatadine 0.7% (Pataday Once Daily Relief) 1 drp ophthalmic (eye) Q24H PRN oxybutynin chloride 5 mg PO BID terbinafine HCl 250 mg PO DAILY Tobacco use date assessed: 09/21/24 Dental Screening Dental Screen Date: 09/21/24 HPI 4m follow up HPI Details Chief Complaint The patient presents for a follow-up visit. History of Present Illness The patient is a 44-year-old female presenting with a follow-up visit. She reports symptoms of hyperhidrosis, for which she has previously consulted dermatology. It has been years since her last consultation, and she is requesting another referral to a contact center representative she has seen in the past and liked. The patient denies any suicidal ideation, homicidal ideation, chest pain, or ongoing dyspnea. anxiety And depression, patient was seen at [facility] for therapy in the past she reports she will call them. She knows to contact us if she has difficulty contacting them. GERD: denies any CP, radicular symptoms Social History Health Maintenance Review of Systems - Psychiatric: Denies suicidal ideation, homicidal ideation. - Cardiovascular: Denies chest pain. - Respiratory: Denies ongoing dyspnea. - Integumentary: Reports hyperhidrosis. Physical Exam General: Cooperative, healthy appearing, comfortable, no acute distress and well developed Orientation: Patient oriented x3 Limitations: No limitations Head: Normal to inspection Ears: Hearing slightly diminished bilaterally Nose: Normal external nose present Face and sinus: Normal facial exam Eyes: Appearance normal, both eyes and all related structures Neck: Normal visual inspection and Yes full ROM Respiratory: Normal respiratory effort and able to speak in complete sentences. Clear to auscultation bilaterally, slightly dim Cardiovascular: Regular rate, rhythm. Normal S1 and S2 GI: Normal to inspection. Soft to palpation and nontender Neuro: Patient oriented x3 Extremities: Normal to inspection Results Plan The patient will be referred to dermatology for further evaluation and management of hyperhidrosis. She is encouraged to continue accessing therapy services as needed and to contact [facility] for further support. starting PPI for GERD PFSH Medical History Acute cystitis Fatigue Coccygeal pain Anxiety Left shoulder pain Surgical History No pertinent past surgical history Social History Housing: House Alcohol intake: former Year quit: 2005 Patient Tobacco Use Status: Former Tobacco user Years Smoked: quit 12/2005 e-Cigarette/Vaping Use: Never Used Second Hand Smoke Exposure: Yes Substance Use Type: Marijuana service: No Current occupational status: unemployed Cognitive needs: No Hearing needs: No Vision needs: No Questionnaire Thrive Questionnaire Date Thrive assessed: 01/20/25 I am a: Patient What is your living situation today?: I have a steady place to live Within the past 12 months, did the food you bought not last and you didn't have the money to get more?: Sometimes True Within the past 12 months, did you worry whether your food would run out before you got money to buy more?: Sometimes True Do you have trouble paying for medicines?: No Do you have trouble getting transportation to medical appointments?: No Do you have trouble paying your heating and electricity bill?: No Do you have trouble taking care of your child, family member or friend?: No Do you have trouble with day-to-day activities such as bathing, preparing meals, shopping, managing finances, etc.?: Yes Are you currently unemployed and looking for a job?: No Are you interested in more education?: No Please select the resources that you would like help with: None Currently or been in a relationship where the following occur: No concerns reported THRIVE Score: 2 PEDRO-7 AMB Questionnaire PEDRO-7 Date PEDRO - 7 assessed: 09/21/24 Source: Developed by Drs. Trevor Brar, Jenniffer Carrion, Felix Segovia and colleagues, with an educational naif from [employer]. 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 Orders: Referrals Dermatology Referral L74.510 - Primary focal hyperhidrosis, axilla Medications: New omeprazole 20 mg PO DAILY 90 caps 0RF
--- OUTSIDE RECORDS SUMMARY | 2025-01-20 13:34 | XMS_ITS | Clinical Summary ---
Author Organization [address] [place] [address] Address [address] [place] [address] Phone Care Team Providers Care Financial Service Representative Name Role Phone Brodie Gonzalez NP Primary Care Provider [phone] Allergies Active Allergy Reactions Criticality Noted Date Comments Other Anaphylaxis High 12/18/2022 Seafood Medications albuterol HFA (ProAir HFA) 90 mcg/actuation inhaler 1 Active oxyBUTYnin (DITROPAN) 5 mg/5 mL syrup take 5 ml by mouth twice a day 5 Active fluticasone propionate (FLONASE) 50 mcg/actuation nasal spray USE 1 SPRAY INTRANASALLY EVERY 12 HOURS ADMINISTER INTO EACH NOSTRIL 5 Active ketoconazole (NIZORAL) 2 % cream Apply topically 1 (one) time each day. 60 g 2 5 Active terbinafine (LamISIL) 250 mg tablet Take 1 tablet (250 mg total) by mouth 1 (one) time each day. 30 tablet 2 5 025 metroNIDAZOLE (METROGEL) 0.75 % (37.5mg/5 gram) vaginal gel Insert 1 Applicatorful into the vagina 1 (one) time each day for 5 days. 70 g 5 025 Active Problems Problem Noted Date Diagnosed Date [...] Chlamydia 08/26/2022 09/25/2024 Bacterial vaginosis 08/23/2022 09/25/19 Overview (07/09/2024): Last Assessment & Plan: Treated with metrogel. Labial cyst 10/12/2021 09/25/2024 Overview (07/09/2024): Last Assessment & Plan: Discussed that as cyst is very small and non-tender no intervention needed, however if cyst become larger or painful patient to return for I&D. Encounters Date Type Department Care Team Description 01/11/2025 9:30 AM EDT Office Visit Orthopedic Surgery [address] [phone] Srikanth Calvin DPM Pain in right foot (Primary Dx); Tinea pedis of both feet; Dermatophytosis of nail 12/17/2024 9:00 AM EDT Office Visit Obstetrics & Gynecology [address] [phone] Nikki Lundy CNM Vaginal odor (Primary Dx); Urinary pain; Irregular menses; Screen for STD (sexually transmitted disease) from Last 3 Months Immunizations Name Administration [...] Livin g [address] Cifuentes Delivery Location:[facility] Last Filed Vital Signs Vital Sign Reading Time Taken Comments Blood Pressure 134/88 12/17/2024 9:13 AM EDT Pulse 95 12/17/2024 9:13 AM EDT Temperature - - Respiratory Rate - - Oxygen Saturation - - Inhaled Oxygen Concentration - - Weight 72.6 kg (160 lb) 01/11/2025 9:41 AM EDT Height 163.8 cm (5' 4.5 ) 12/17/2024 9:13 AM EDT Body Mass Index 27.04 12/17/2024 9:13 AM EDT Plan of Treatment Upcoming Encounters Date Type Department Care Team (Late st Contact Info) Description 03/15/2025 9:15 AM EDT Office Visit Orthopedic Surgery - [place] [address] [facility] [address] [place] [phone] Srikanth Calvin, DPSonya 175 [facility] Gigi [address] [place] [id number] Health Maintenance Due Date Last Done Comments Depression Screening 07/07/2022 Social Influencers of Health Screening 07/07/2022 COVID-19 Vaccine ( - 2023-2 5 season) 2024 Influenza Vaccine (Season Ended) [...] Associated Diagnosis Comments TRICHOMONAS VAGINALIS ANTIGEN Routine 12/17/2024 9:33 AM EDT Vaginal odor Screen for STD (sexually transmitted disease) CHLAMYDIA TRACHOMATIS AND NEISSERIA GONORRHOEAE PCR Routine 12/17/2024 9:33 AM EDT Screen for STD (sexually transmitted disease) WET PREP, GENITAL Routine 12/17/2024 9:3 3 AM EDT Vaginal odor Screen for STD (sexually transmitted disease) POC , URINE DIAGNOSTIC Routine 12/17/2024 9:25 AM EDT Irregular menses POC URINE AUTO W/O MICRO Routine 12/17/2024 9:23 AM EDT Urinary pain HEPATITIS C ANTIBODY Routine 10/08/2024 10:19 AM EST Encounter for well woman exam with routine gynecological exam Screen for STD (sexually transmitted disease) HIV 1, 2 ANTIBODY, P24 ANTIGEN WITH REFLEX TO DIFFERENTIATION Routine 10/08/2024 10:19 AM EST Encounter for well woman exam with routine gynecological exam Screen for STD (sexually transmitted disease) HPV WITH REFLEX GENOTYPE Routine 09/25/2024 9:17 AM EST Encounter for well woman exam with routine gynecological exam Screening for cervical cancer MG MAMMO DIGITAL DIAGNOSTIC BILAT Routine 12/06/2023 11:23 AM EDT from Last 3 Months or Most Recently Relevant to Health Maintenance Results * Trichomonas vaginalis antigen (12/17/2024 9:33 AM EDT) Trichomonas vaginalis Negative Negative 12/17/2024 1:40 PM EDT [facility] Swab Vaginal structure / Unknown Non-blood Collection / Unknown 12/17/2024 9:33 AM EDT 12/17/2024 12:27 PM EDT Nikki Lundy [facility] MICROBIOLOGY - GENERAL OR DERABLES Final Result Performing Organization Address [facility]/ZIP Co de Phone Number [facility] [address] [place] [address], * Chlamydia trachomatis and Neisseria gonorrhoeae molecular study (12/17/2024 9:33 AM EDT) Neisseria gonorrhoeae PCR Negative Negative LAB MOLECULAR DIAGNOSTICS METHOD 12/17/2024 3:02 PM EDT [facility] Chlamydia trachomatis PCR Negative Negative LAB MOLECULAR DIAGNOSTICS METHOD 12/17/2024 3:02 PM EDT [facility] Swab Cervix uteri structure / Unknown Non-blood Collection / Unknown 12/17/2024 9:33 AM EDT 12/17/2024 12:27 PM EDT Nikki [facility] LAB MICROBIOLOGY - GENERAL OR DERABLES Final Result Performing Organization Address City/[facility]/ZIP Co de Phone Number [facility] [address] [place] [address], [place] [phone] * (ABNORMAL) Wet prep, genital (12/17/2024 9:33 AM EDT) [facility] Clue Cells, Wet Prep Positive(A) Negative 12/17/2024 1:30 PM EDT [facility] Yeast, Wet Prep Negative Negative 12/17/2024 1:30 PM EDT [facility] Trichomonas, Wet Prep Indeterminate Negative 12/17/2024 1:30 PM EDT [facility] Comment:Refer to Trichomonas antigen. Swab Vaginal structure / Unknown Non-blood Collection / Unknown 12/17/2024 9:33 AM EDT 12/17/2024 12:27 PM EDT Nikki Lundy [facility] MICROBIOLOGY - GENERAL OR DERABLES Final Result [facility] [address] [place] [address], [place] [phone] * (ABNORMAL) POC , urine manually resulted (12/17/2024 9:25 AM EDT) [facility] HCG, Ur POC Negative(A ) Negative POC hCG Int QC Pass? Yes(A) Yes Urine Urine specimen obtained by clean catch procedure / Unknown 12/17/2024 9:25 AM EDT [facility] POINT OF CARE TEST ENTER/EDIT ORDERABLES Edited Result - Final * (ABNORMAL) POC Urine Auto W/O Micro (12/17/2024 9:23 AM EDT) [facility] Leukocytes UA POC Negative Negative Nitrite UA POC Negative Negative Urobilinogen UA POC Negative Negative Protein UA POC Negative Negative PH UA POC 6.5 5.0 - 9.0 Blood UA POC Trace Negative, Trace Specific [place] UA POC 1.020 1.001 - 1.035 Ketones UA POC 1+(A) Negative Bilirubin UA POC Negative Negative Glucose UA POC Normal Normal, Trace Urine Urine specimen obtained by clean catch procedure / Unknown 12/17/2024 9:23 AM EDT [facility] POINT OF CARE TEST ENTER/EDIT ORDERABLES Final Result * Hepatitis C antibody (10/08/2024 10:19 AM EST) Hepatitis C Antibody Negative Negative LAB CHEMISTRY METHOD 10/08/2024 4:27 PM [facility] Blood Venous blood specimen / Unknown Venipuncture / Unknown 10/08/2024 10:19 AM EST 10/08/2024 10:19 AM EST [facility] LAB BLOOD ORDERABLES Final Re sult Performing Organization Address [facility] Co de Phone Number [facility] [address] [place] [address], * HIV 1,2 antibody, p24 antigen with reflex to differentiation (10/08/2024 10:19 AM EST) [facility] HIV Combo AB/AG Negative Negative LAB CHEMISTRY METHOD 10/08/2024 4:27 PM [facility] Blood Venous blood specimen / Unknown Venipuncture / Unknown 10/08/2024 10:19 AM EST 10/08/2024 10:19 AM EST Narrative [facility] - 10/08/2024 4:27 PM EST This assay is a 4th generation assay allowing for earlier detection of HIV infection by detecting the presence of the HIV-1 p24 antigen as well as the traditional antibodies to HIV type 1 (including group O) and type 2. Use of a 4th generation assay is the current CDC recommendation for HIV screening. [facility] BLOOD ORDERABLES Final Re sult Performing Organization Address [facility]/ZIP Co de Phone Number [facility] [address] [place] [address], [place] [phone] * (ABNORMAL) HPV with reflex genotype (09/25/2024 9:17 AM EST) HPV Positive( A) Negative LAB MICROBIOLOGY METHOD 09/28/2024 3:13 PM EST [facility] Brushing/Spatula Cervix uteri structure / Unknown 09/25/2024 9:17 AM EST 09/28/2024 6:24 AM EST Nikki [facility] LAB MOLECULAR DIAGNOSTICS ORD ERABLES Final Result [facility] [address] [place] [address], * MG Mammo Digital Diagnostic bilat (12/06/2023 11:23 AM EDT) Anatomical Region Laterality Modality Breast Bilateral Mammography Historical Provider MD MONTIEL BI PROCEDURES Final R esult from Last 3 Months or Most Recently Relevant to Health Maintenance Insurance [facility] [employer] Care Teams Financial Service Representative Relationship Specialty Start Date End Date Brodie Gonzalez NP [address] [place], [place] PCP - General Family Medicine 12/23/24
== END 2025-01-20 12:36 | disposition home or self-care (01) ==
LOC: HO.HMCC 11:35
PROVIDERS: PCP Nurse Practitioner Family; Visit Provider Nurse Practitioner Family
DX: F41.9 Anxiety disorder, unspecified (principal); K21.9 Gastro-esophageal reflux disease without esophagitis; L74.510 Primary focal hyperhidrosis, axilla

== ENCOUNTER → 2025-01-20 11:35 | Outpatient (BNVA) | payer OTHER, SELFPAY | PROVIDERS: PCP Nurse Practitioner Family; Visit Provider Nurse Practitioner Family | DX: L74.510 Primary focal hyperhidrosis, axilla (principal); F41.9 Anxiety disorder, unspecified; F32.A Depression, unspecified; K21.9 Gastro-esophageal reflux disease without esophagitis | CPT/HCPCS: 99212 ==

== ENCOUNTER 2025-01-29 15:26 | Outpatient (AMB) | payer OTHER, SELFPAY ==
--- OUTSIDE RECORDS SUMMARY | 2025-01-29 15:29 | XMS_ITS | Clinical Summary ---
Author Organization [address] [place] [address] Address [address] [place] [address] Phone Care Team Providers Care Radio/Tv Technician Name Role Phone AdeyessiBrodie NP Primary Care Provider Allergies Active Allergy [...] time each day. 30 tablet 2 5 01/09/20 25 Active Problems Problem Noted Date Diagnosed [...] 9:30 AM EDT Office Visit Orthopedic Surgery [address] [phone] Srikanth Calvin DPM Pain in right foot (Primary Dx); Tinea pedis of both feet; Dermatophytosis of nail 12/17/2024 9:00 AM EDT Office Visit Obstetrics & Gynecology [address] [phone] Nikki Lundy CNM Vaginal odor (Primary Dx); [...] Livin g [address] Cifuent[address] Delivery Location:[facility] Last Filed Vital Signs Vital Sign [...] AM EDT Office Visit Orthopedic Surgery - [place] [address] [phone] Srikanth Calvin, NICOLAS [address] [address] Health Maintenance Due Date Last Done Comments Depression Screening 07/07/2022 Social Influencers of Health Screening 07/07/2022 COVID-19 Vaccine (1 - 2023-2 5 season) 2024 Influenza Vaccine [...] vaginalis Negative Negative 12/17/2024 1:40 PM EDT [facility] Swab Vaginal structure / Unknown Non-blood Collection / Unknown 12/17/2024 9:33 AM EDT 12/17/2024 12:27 PM EDT [facility] LAB MICROBIOLOGY - GENERAL OR DERABLES Final Result Performing Organization Address City/[facility]/ZIP Co de Phone Number [facility] [address] [place] [address], [place] [phone] * Chlamydia trachomatis and Neisseria gonorrhoeae molecular study (12/17/2024 9:33 AM EDT) Neisseria gonorrhoeae PCR Negative Negative LAB MOLECULAR DIAGNOSTICS METHOD 12/17/2024 3:02 PM EDT [facility] Chlamydia trachomatis PCR Negative Negative LAB MOLECULAR DIAGNOSTICS METHOD 12/17/2024 3:02 PM EDT [facility] Swab Cervix uteri structure / Unknown Non-blood Collection / Unknown 12/17/2024 9:33 AM EDT 12/17/2024 12:27 PM EDT us Nikki [facility] LAB MICROBIOLOGY - GENERAL OR DERABLES Final Result Performing Organization Address City/[facility]/ZIP Co de Phone Number [facility] [address] [place] [address], [place] [phone] * (ABNORMAL) Wet prep, genital (12/17/2024 9:33 AM EDT) Clue Cells, Wet Prep Positive(A) Negative 12/17/2024 1:30 PM EDT [facility] Yeast, Wet Prep Negative Negative 12/17/2024 1:30 PM EDT [facility] Trichomonas, Wet Prep Indeterminate Negative 12/17/2024 1:30 PM EDT [facility] Comment:Refer to Trichomonas antigen. Swab Vaginal structure / Unknown Non-blood Collection / Unknown 12/17/2024 9:33 AM EDT 12/17/2024 12:27 PM EDT Nikki Lundy CNM LAB MICROBIOLOGY - GENERAL OR DERABLES Final Result [facility] [address] [place] [address], * (ABNORMAL) POC , urine manually resulted (12/17/2024 9:25 AM EDT) HCG, Ur POC Negative(A ) Negative POC hCG Int QC Pass? Yes(A) Yes Urine Urine specimen obtained by clean catch procedure / Unknown 12/17/2024 9:25 AM EDT Nikki [facility] POINT OF CARE TEST ENTER/EDIT ORDERABLES Edited Result - Final * (ABNORMAL) POC Urine Auto W/O Micro (12/17/2024 9:23 AM EDT) Leukocytes UA POC Negative Negative Nitrite UA POC Negative Negative Urobilinogen UA POC Negative Negative Protein UA POC Negative Negative PH UA POC 6.5 5.0 - 9.0 Blood UA POC Trace Negative, Trace Specific [place] UA POC 1.020 1.001 - 1.035 Ketones UA POC 1+(A) Negative Bilirubin UA POC Negative Negative Glucose UA POC Normal Normal, Trace Urine Urine specimen obtained by clean catch procedure / Unknown 12/17/2024 9:23 AM EDT [facility] POINT OF CARE TEST ENTER/EDIT ORDERABLES Final Result * Hepatitis C antibody (10/08/2024 10:19 AM EST) [facility] Hepatitis C Antibody Negative Negative LAB CHEMISTRY METHOD 10/08/2024 4:27 PM EST [facility] Blood Venous blood specimen / Unknown Venipuncture / Unknown 10/08/2024 10:19 AM EST 10/08/2024 10:19 AM EST [facility] LAB BLOOD ORDERABLES Final Re sult Performing Organization Address [facility]/ZIP Co de Phone Number [facility] [address] [place] [address], * HIV 1,2 antibody, p24 antigen with reflex to differentiation (10/08/2024 10:19 AM EST) [facility] HIV Combo AB/AG Negative Negative LAB CHEMISTRY METHOD 10/08/2024 4:27 PM EST [facility] Blood Venous blood specimen / Unknown Venipuncture / Unknown 10/08/2024 10:19 AM EST 10/08/2024 10:19 AM EST Narrative [facility] - 10/08/2024 4:27 PM EST This assay is a 4th generation assay allowing for earlier detection of HIV infection by detecting the presence of the HIV-1 p24 antigen as well as the traditional antibodies to HIV type 1 (including group O) and type 2. Use of a 4th generation assay is the current CDC recommendation for HIV screening. [facility] BLOOD ORDERABLES Final Re sult Performing Organization Address [facility] [place]/[facility]/ZIP Co de Phone Number [facility] [address] [place] [address], [place] [phone] * (ABNORMAL) HPV with reflex genotype (09/25/2024 9:17 AM EST) [facility] HPV Positive( A) Negative LAB MICROBIOLOGY METHOD 09/28/2024 3:13 PM EST [facility] Brushing/Spatula Cervix uteri structure / Unknown 09/25/2024 9:17 AM EST 09/28/2024 6:24 AM EST Nikki Lundy CNM LAB MOLECULAR DIAGNOSTICS ORD ERABLES Final Result [facility] [address] [place] [address], [place] [phone] * MG Mammo Digital Diagnostic bilat (12/06/2023 11:23 AM EDT) Anatomical Region Laterality Modality Breast Bilateral Mammography Historical Provider MD MONTIEL BI PROCEDURES Final R esult from Last 3 Months or Most Recently Relevant to Health Maintenance Insurance [facility] [employer] Care Teams Radio/Tv Technician Relationship Specialty Start Date End Date Brodie Gonzalez NP [address] [place], [place] PCP - General Family Medicine 07/27/24
[2025-01-29 15:42] VITALS: BP 116/72; PULSE 100; TEMP 36.8; O2SAT 95; BMI 30.4
--- NOTE | 2025-01-29 15:42 | AM.OFFWIN_ITS ---
Intake Vital Signs 01/29/25 15:42 Height 5 ft 1 in Weight 161 lb BMI 30.4 BP 116/72 Blood Pressure Location Rt brachial Position Sitting Pulse 100 Pulse Source Pulse Oximeter Temp 98.2 F Temp Source Oral Pulse Oximetry (%) 95 Oxygen Delivery Method Room Air Intake Visit Reasons: EP UTI, pelvic pressure Intake Note: Patient present with vaginal pressure days after having intercourse. Patient Tobacco Use Status: Former Tobacco user [employer] Head Required: No Is last menstrual period known: Yes Post menopausal: No Patient : No Allergies LOTION Allergy (Intermediate, Uncoded 01/20/25 11:52) facial rash TUNA FISH Allergy (Intermediate, Uncoded 01/20/25 11:52) facial rash Do you need a note to return to daycare/school/sports/work: No HPI HPI Comments History of Present Illness Details History - The patient is a 44-year-old female pr esenting with urinary symptoms, vaginal discharge, and concerns about a possible sexually transmitted infection. - Urinary symptoms began after sexual in tercourse 6 days ago, with frequent urination every 5-10 minutes and a sensation of incomplete bladder emptying. - Symptoms included pressure and exhaust ion, with relief after urination, and a slight burning sensation when urinating. - Vaginal discharge started a few days a fter the onset of urinary symptoms, described as white with a tinge of yellow, smooth in consistency. Denies fevers. - The patient reports itching and a slig ht burning sensation upon wiping. - Concerns about a possible STI due to p artner's infidelity and previous similar episodes and previous chlamydia diagnosis. - History of cysts causing discomfort wh en sitting, with a current cyst near the spine causing significant pain. - Chronic back pain due to multiple acci dents, with no significant change from baseline. - Menstrual irregularities noted with pe riods occurring twice a month for the past two months. LMP 2 weeks ago and they have been coming every 2 weeks for the last 2 months. Physical Exam General: Cooperative, healthy appearing, comfortable, no acute distress and well developed Orientation: Patient oriented x3 Limitations: No limitations Head: Normal to inspection Ears: Hearing grossly normal bilaterally Face and sinus: Normal facial exam Neck: Normal visual inspection and Yes full ROM Respiratory: Normal respiratory effort and able to speak in complete sentences. Skin: No rashes or lesions noted Neuro: Patient oriented x3 Back/spine: Negative CVA bilaterally, but patient reports chronic back pain due to past accidents and presence of a cyst causing discomfort when sitting. [facility] Medical History Acute cystitis Fatigue Coccygeal pain Anxiety Left shoulder pain Surgical History No pertinent past surgical history Social History Housing: House Alcohol intake: former Year quit: 2005 Patient Tobacco Use Status: Former Tobacco user Years Smoked: quit 12/2005 e-Cigarette/Vaping Use: Never Used Second Hand Smoke Exposure: Yes Substance Use Type: Marijuana Patient : No service: No Current occupational status: unemployed Cognitive needs: No Hearing needs: No Vision needs: No Review of Systems Const All systems reviewed & are unremarkable except as noted in HPI and below Physical Exam Vital Signs: Last Vital Signs Temp 98.2 F 01/29/25 15:42 Pulse 100 01/29/25 15:42 BP 116/72 01/29/25 15:42 Pulse Ox 95 01/29/25 15:42 Oxygen Delivery Method Room Air 01/29/25 15:42 BMI result Body Mass Index 30.4 Results AMB Urinalysis, Automated UA Leukoctes 0 Ruben/uL Last Edit by Reny Solano MA on 01/29/25 15:51 UA Nitrite Negative Last Edit by Reny Solano MA on 01/29/25 15:51 UA Urobilinogen 0.2 mg/dL Last Edit by Reny Solano MA on 01/29/25 15:51 UA Protein 15 mg/dL Last Edit by Reny Solano MA on 01/29/25 15:51 UA pH 6.0 Last Edit by Reny Solano MA on 01/29/25 15:51 UA Blood 25 Earl/uL Last Edit by Reny Solano MA on 01/29/25 15:51 UA Specific [place] 1.030 Last Edit by Reny Solano MA on 01/29/25 15:51 UA Ketone Last Edit by Reny Solano MA on 01/29/25 15:51 UA Bilirubin 0 mg/dL Last Edit by Reny Solano MA on 01/29/25 15:51 UA Glucose 0 mg/dL Last Edit by Reny Solano MA on 01/29/25 15:51 AMB Test Urine AMB Test Urine Negative Last Edit by Bo Gambino CMA on 16:31 Results Reviewed Results Reviewed: Laboratory Last Values Urine pH (Auto) 6.0 01/29/25 15:49 Specific [place] (Auto) 1.030 01/29/25 15:49 Urine Protein (Auto) 15 mg/dL 01/29/25 15:49 Glucose (UA)(Auto) 0 mg/dL 01/29/25 15:49 Urine Blood (Auto) 25 Earl/uL 01/29/25 15:49 Urine Nitrite (Auto) Negative 01/29/25 15:49 Urine Bilirubin (Auto) 0 mg/dL 01/29/25 15:49 Urine Urobilinogen (Auto) 0.2 mg/dL 01/29/25 15:49 Leukocyte Esterase (Auto) 0 Ruben/uL 01/29/25 15:49 Assessment & Plan Assessment & Plan (1) Vaginal discharge: Code(s): N89.8 - Other specified noninflammatory disorders of vagina Plan: Patient was informed and verbally consented to the use of an ambient scribe for clinic note documentation during this visit. 1. Urinary Tract Infection - UA neg nitrites, neg leuks, 1+ blood - Perform urine culture to confirm infection and guide antibiotic therapy. We will hold off on prescribing antibiotics as it is unclear if this is a UTI or a sexually transmitted infection. 2. Vaginal discharge - Possible Sexually Transmitted Infection (STI) - Testing for chlamydia and gonorrhea to confirm diagnosis and determine appropriate treatment. - Sent luis vag panel to be thorough. 3. Menstrual Irregularities - Urine test done, negative today. - Monitor menstrual cycle, consider gynecological evaluation if irregularities persist. (2) Abnormal menstrual periods: Code(s): N92.6 - Irregular menstruation, unspecified Plan: as above (3) Unprotected sex: Code(s): Z72.51 - High risk heterosexual behavior Plan: as above Orders: Orders AMB Urinalysis Automated Today Z13.9 - Encounter for screening, unspecified AMB HCG Urine Test Today N92.6 - Irregular menstruation, unspecified, Z72.51 - High risk heterosexual behavior CT NG by PCR Vag/Cerv Today N89.8 - Other specified noninflammatory disorders of vagina Bacterial Vaginosis Panel Today N89.8 - Other specified noninflammatory disorders of vagina Coding Level of Care Code Est Pt Level 4 (00054) Diagnoses Vaginal discharge N89.8 Abnormal menstrual periods N92.6 Unprotected sex Z72.51
== END 2025-01-29 16:45 | disposition home or self-care (01) ==
PROVIDERS: PCP Nurse Practitioner Family; Visit Provider Physician Assistant
DX: N89.8 Other specified noninflammatory disorders of vagina (principal); N92.6 Irregular menstruation, unspecified; Z72.51 High risk heterosexual behavior; Z13.9 Encounter for screening, unspecified

== ENCOUNTER 2025-01-29 15:26 | Outpatient (REF) | payer OTHER, SELFPAY ==
[2025-01-30 15:01] LABS: Bacterial Vaginosis PCR NEGATIVE (Negative); Candida Group PCR DETECTED (Not Detect); Candida glab krusei PCR NOT DETECTED (Not Detect); Trichomonas vaginalis PCR NOT DETECTED (Not Detect)
[2025-01-30 15:33] LABS: CT PCR Urine NOT DETECTED (Not Detect.); NG PCR Urine NOT DETECTED (Not Detect.)
== END 2025-01-29 15:27 | disposition home or self-care (01) ==
LOC: HO.LAB 15:26
PROVIDERS: PCP Nurse Practitioner Family; Visit Provider Physician Assistant
DX: N89.8 Other specified noninflammatory disorders of vagina (principal); N92.6 Irregular menstruation, unspecified; Z72.51 High risk heterosexual behavior; Z13.9 Encounter for screening, unspecified
CPT/HCPCS: 81003; 81025; 81515; 87491; 87591; 99212

== ENCOUNTER 2025-04-12 09:30 | Outpatient (AMB) | payer MEDICAID, SELFPAY ==
[2025-04-12 09:33] VITALS: BP 122/86; PULSE 82; TEMP 37.1; O2SAT 98; BMI 30.6
--- NOTE | 2025-04-12 09:33 | AM.OFFWIN_ITS ---
Intake Vital Signs 04/12/25 09:33 Height 5 ft 1 in Weight 162 lb BMI 30.6 BP 122/86 Blood Pressure Location Lt brachial Position Sitting Pulse 82 Pulse Source Pulse Oximeter Temp 98.8 F Temp Source Oral Pulse Oximetry (%) 98 Oxygen Delivery Method Room Air Intake Visit Reasons: ep possible uti, throat tickle Intake Note: pt presents with concern for a UTI; c/o vaginal odor, low abdominal pressure decreased urine output and also c/o mild cough Patient Tobacco Use Status: Former Tobacco user Allergies seafood Allergy (Severe, Verified 04/12/25 09:39) Anaphylaxis LOTION Allergy (Intermediate, Uncoded 01/20/25 11:52) facial rash Do you need a note to return to daycare/school/sports/work: No HPI HPI Comments History of Present Illness Details History of Present Illness - The patient is a 44-year-old female pr esenting with symptoms suggestive of a urinary tract infection, sexually transmitted infection, and back pain. - Reports dysuria and lower abdominal pa in, with urination producing only a small amount of urine. - Concerned about a possible urinary tra ct infection or sexually transmitted infection following unprotected intercourse with a new partner. - History of a regular partner who has b een unfaithful, raising concerns about sexually transmitted infections. - Reports vaginal itching and a history of thrush, which may contribute to her symptoms. - Reports back pain, affecting mobility and daily activities such as wiping. - Sore throat and mild congestion, quentin hagan concerns about COVID-19, especially given her son's recent illness. - She denies fever, chills, chest pain, SOB, abd pain, n/v/d, hematuria, or diarrhea, - She has no rashes or lesions. Physical Exam General: Cooperative, healthy appearing, comfortable, no acute distress and well developed Orientation: Patient oriented x3 Limitations: No limitations Head: Normal to inspection Ears: Hearing grossly normal bilaterally Face and sinus: Normal facial exam Mouth and throat: Uvula is midline. Pharynx is pink with no exudates noted. Tongue is midline with a thick white coating on it. Neck: Normal visual inspection and Yes full ROM. No lymphadenopathy noted. Respiratory: Normal respiratory effort and able to speak in complete sentences. Clear to auscultation bilaterally Cardiovascular: Regular rate and rhythm. Normal S1 and S2 GI: Tender to palpation in the mid lower abdomen. No guarding or rebound tenderness noted. No CVA tenderness noted. Skin: No rashes or lesions noted Patient was informed and verbally consented to the use of an ambient scribe for clinic note documentation during this visit. [facility] Medical History Acute cystitis Fatigue Coccygeal pain Anxiety Left shoulder pain Surgical History No pertinent past surgical history Social History Housing: [place] Alcohol intake: former Year quit: 2005 Patient Tobacco Use Status: Former Tobacco user Years Smoked: quit 12/2005 e-Cigarette/Vaping Use: Never Used Second Hand Smoke Exposure: Yes Substance Use Type: Marijuana service: No Current occupational status: unemployed Cognitive needs: No Hearing needs: No Vision needs: No Review of Systems Const All systems reviewed & are unremarkable except as noted in HPI and below Physical Exam Vital Signs: Last Vital Signs Temp 98.8 F 04/12/25 09:33 Pulse 82 04/12/25 09:33 BP 122/86 04/12/25 09:33 Pulse Ox 98 04/12/25 09:33 Oxygen Delivery Method Room Air 04/12/25 09:33 BMI result Body Mass Index 30.6 Results AMB Urinalysis, Automated UA Leukoctes 0 Ruben/uL Last Edit by Cindy Masters MA on 04/12/25 09:54 UA Nitrite Negative Last Edit by Cindy Masters MA on 04/12/25 09:54 UA Urobilinogen 0.2 mg/dL Last Edit by Cindy Masters MA on 04/12/25 09:54 UA Protein 0 mg/dL Last Edit by Cindy Masters MA on 04/12/25 09:54 UA pH 6.0 Last Edit by Cindy Masters MA on 04/12/25 09:54 UA Blood 0 Earl/uL Last Edit by Cindy Masters MA on 04/12/25 09:54 UA Specific [place] 1.015 Last Edit by Cindy Masters MA on 04/12/25 09:5 4 UA Ketone Negative Last Edit by Cindy Masters MA on 04/12/25 09:54 UA Bilirubin 0 mg/dL Last Edit by Cindy Masters MA on 04/12/25 09:54 UA Glucose 0 mg/dL Last Edit by Cindy Masters MA on 04/12/25 09:54 Results Reviewed Results Reviewed: Laboratory Last Values Urine pH (Auto) 6.0 04/12/25 09:53 Specific [place] (Auto) 1.015 04/12/25 09:53 Urine Protein (Auto) 0 mg/dL 04/12/25 09:53 Glucose (UA)(Auto) 0 mg/dL 04/12/25 09:53 Urine Ketones (Auto) Negative 04/12/25 09:53 Urine Blood (Auto) 0 Earl/uL 04/12/25 09:53 Urine Nitrite (Auto) Negative 04/12/25 09:53 Urine Bilirubin (Auto) 0 mg/dL 04/12/25 09:53 Urine Urobilinogen (Auto) 0.2 mg/dL 04/12/25 09:53 Leukocyte Esterase (Auto) 0 Ruben/uL 04/12/25 09:53 Assessment & Plan Assessment & Plan (1) Dysuria: Code(s): R30.0 - Dysuria (2) Thrush: Code(s): B37.0 - Candidal stomatitis (3) Vaginal itching: Code(s): N89.8 - Other specified noninflammatory disorders of vagina (4) Sore throat: Code(s): J02.9 - Acute pharyngitis, unspecified Plan plan 1. Dysuria - Plan to perform a urine culture to confirm the presence of a urinary tract infection. - will send culture to confirm 2. vaginal itch - Plan to conduct swabs for sexually transmitted infections, including Chlamydia and Gonorrhea. - Consideration for bacterial vaginosis testing due to reported symptoms and partner's comments about pH imbalance. 3. sore throat - rapid in the office is negative - Plan to test for COVID-19 due to sore throat and mild congestion. - also will order gc/chlam of the throat 4. Thrush - Plan to evaluate and treat oral thrush, possibly related to recent sore throat. Orders: Orders AMB Urinalysis Automated Today Antoinette Joaquin NP Z13.9 - Encounter for screening, unspecified Urine Culture Today Bernarda Lopez PA-C N39.0 - Urinary tract infection, site not specified, N89.8 - Other specified noninflammatory disorders of vagina Bacterial Vaginosis Panel Today Bernarda Lopez PA-C N89.8 - Other specified noninflammatory disorders of vagina CT NG by PCR Vag/Cerv Today Bernarda Lopez PA-C N89.8 - Other specified noninflammatory disorders of vagina CT NG RNA TMA, Throat Today Bernarda Lopez PA-C R07.0 - Pain in throat Medications: New nystatin administer 1/2 of dose in each side of the mouth 5 mL buccal qid 140 mL 0RF 7 days Bernarda Lopez PA-C Refilled albuterol sulfate 90 mcg/actuation 1 inh inhalation QID PRN 8.5 grams 4RF shortness of breath or wheezing 30 days Bernarda Lopez PA-C Coding Level of Care Code Est Pt Level 4 (28811) Diagnoses Dysuria R30.0 Thrush B37.0 Vaginal itching N89.8 Sore throat J02.9
--- OUTSIDE RECORDS SUMMARY | 2025-04-12 10:47 | XMS_ITS | Clinical Summary ---
Author Organization [address] [place] [address] Address [address] [place] [address] Phone Care Team Providers Care Duct Maker Name Role Phone HannahBrodie yusuf Carly GIBBONS [...] each day. 60 g 2 5 Active Active Problems Problem Noted Date Diagnosed [...] AM EDT Office Visit Orthopedic Surgery - [address] [phone] Srikanth Calvin, NICOLAS Pain in right foot (Primary Dx); Tinea pedis of both feet; Dermatophytosis of nail from Last 3 Months Immunizations Name Administration [...] Sexual Orientation Not on file Obstetrics History * This document contains information received from the source organization and may not represent a complete record from that organization. Para Term AB IAB SAB Ectopic Multiple Livin g Live Births 2 1 1 1 1 Date Outcome GA Total Labor Labor/2nd/3rd Weight Sex Type Anes PTL Daniella A1 A5 Name Clin 2005 36w 0d 3232 g (114 oz) M CS-LT ranv Epidur al Livin g [address] Cifuentes Delivery Location[facility] Last Filed Vital Signs Vital Sign Reading [...] Care Team (Late st Contact Info) Description 04/28/2025 11:00 AM EDT Office Visit Orthopedic Surgery - [place] [id number] [phone] Srikanth Calvin, NICOLAS [address] [address] 05/10/2025 9:15 AM EDT Office Visit Obstetrics & Gynecology - [facility] [address] [place] [id number] Fernanda Parker, DARRIUS [address] [place] [address] Health Maintenance Due Date Last Done Comments Social Influencers of Health Screening 07/07/2022 Depression Screening 08/05/2024 COVID-19 Vaccine (1 - 2023-2 5 season) 2025 Influenza Vaccine (#1) 2025 Breast Cancer Screening 12/05/2025 12/06/2023 DTaP,Tdap,and [...] 5 Years) and At-Risk Patients (6 to 49 Years) Aged Out No longer eligible b ased on patient's age to complete this topic RSV Immunization Patients Under 20 months Aged Out No longer eligible b ased on patient's age to complete this topic Varicella Vaccines Aged Out No longer eligible based on patient's age to complete this topic Procedures Procedure Name Priority Date/Time Associated Diagnosis Comments HEPATITIS C ANTIBODY Routine 10/08/2024 10:19 AM [...] LAB CHEMISTRY METHOD 10/08/2024 4:27 PM EST [facility] Blood Venous blood specimen / Unknown Venipuncture / Unknown 10/08/2024 10:19 AM EST 10/08/2024 10:19 AM EST Nikki Lundy CNM LAB BLOOD ORDERABLES Final Re sult [facility] [address] [place] [address], [place] [phone] * HIV 1,2 antibody, p24 antigen with reflex to differentiation (10/08/2024 10:19 AM EST) HIV Combo AB/AG Negative Negative LAB CHEMISTRY METHOD 10/08/2024 4:27 PM EST [facility] Blood Venous blood specimen / Unknown Venipuncture / Unknown 10/08/2024 10:19 AM EST 10/08/2024 10:19 AM EST Narrative [facility] - 10/08/2024 4:27 PM EST This assay is a 4th generation assay allowing for earlier detection of HIV infection by detecting the presence of the HIV-1 p24 antigen as well as the traditional antibodies to HIV type 1 (including group O) and type 2. Use of a 4th generation assay is the current CDC recommendation for HIV screening. Nikki Lundy [facility] BLOOD ORDERABLES Final Re sult [facility] [address] [place] [address], [place] [phone] * (ABNORMAL) HPV with reflex genotype (09/25/2024 9:17 AM EST) Pathologist [facility] HPV Positive( A) Negative LAB MICROBIOLOGY METHOD 09/28/2024 3:13 PM EST [facility] Brushing/Spatula Cervix uteri structure / Unknown 09/25/2024 9:17 AM EST 09/28/2024 6:24 AM EST Nikki Lundy [facility] MOLECULAR DIAGNOSTICS ORD ERABLES Final Result [facility] [address] [place] [address], [place] [phone] * MG Mammo Digital Diagnostic bilat (12/06/2023 11:23 AM EDT) Anatomical Region Laterality Modality Breast Bilateral Mammography us Historical Provider MD MONTIEL BI PROCEDURES Final R esult from Last 3 Months or Most Recently Relevant to Health Maintenance Insurance MEDICAID - [place] Care Teams Duct Maker Relationship Specialty Start Date End Date Brodie Gonzalez NP [address] [place], [place] PCP - General Family Medicine 07/27/24
== END 2025-04-12 10:59 | disposition home or self-care (01) ==
PROVIDERS: PCP Nurse Practitioner Family; Visit Provider Physician Assistant Medical
DX: R30.0 Dysuria (principal); B37.0 Candidal stomatitis; N89.8 Other specified noninflammatory disorders of vagina; J02.9 Acute pharyngitis, unspecified; Z13.9 Encounter for screening, unspecified

== ENCOUNTER 2025-04-12 09:30 | Outpatient (REF) | payer MEDICAID, SELFPAY ==
[2025-04-12 15:40] LABS: Bacterial Vaginosis PCR POSITIVE (Negative); Candida Group PCR NOT DETECTED (Not Detect); Candida glab krusei PCR NOT DETECTED (Not Detect); Trichomonas vaginalis PCR NOT DETECTED (Not Detect)
[2025-04-12 15:41] LABS: Resp Syncy Virus RNA Qual PCR NEGATIVE (Negative); SARS COV2 PCR INHOUSE NEGATIVE (Negative)
[2025-04-12 16:08] LABS: CT PCR NOT DETECTED (Not Detect.); NG PCR NOT DETECTED (Not Detect.)
== END 2025-04-12 09:31 | disposition home or self-care (01) ==
LOC: HO.LAB 09:30
PROVIDERS: PCP Nurse Practitioner Family; Visit Provider Physician Assistant Medical
DX: R30.0 Dysuria (principal); B37.0 Candidal stomatitis; N89.8 Other specified noninflammatory disorders of vagina; J02.9 Acute pharyngitis, unspecified; Z11.2 Encounter for screening for other bacterial diseases; Z11.8 Encounter for screening for other infectious and parasitic diseases; Z11.3 Encounter for screening for infections with a predominantly sexual mode of transmission
CPT/HCPCS: 81003; 81515; 87086; 87491; 87591; 87637; 99212

== ENCOUNTER 2025-04-15 14:13 | Outpatient (REF) | payer MEDICAID, SELFPAY ==
[2025-04-16 20:09] LABS: C. Trachomatis RNA TMA, Throat NOT DETECTED (NOT DETECTED); N. gonorrhoeae RNA TMA, Throat NOT DETECTED (NOT DETECTED)
== END 2025-04-15 14:14 | disposition home or self-care (01) ==
LOC: HO.LNP 14:13
PROVIDERS: Visit Provider Physician Assistant Medical
DX: Z11.3 Encounter for screening for infections with a predominantly sexual mode of transmission (principal); Z11.8 Encounter for screening for other infectious and parasitic diseases; R07.0 Pain in throat
CPT/HCPCS: 87491; 87591

== ENCOUNTER 2025-05-12 12:48 | Outpatient (AMB) | payer MEDICAID, SELFPAY ==
[2025-05-12 12:56] VITALS: BP 124/84; PULSE 88; RESP 16; BMI 30.8
--- NOTE | 2025-05-12 12:56 | A.OFFPC_ITS ---
Vital Signs 05/12/25 12:56 Height 5 ft 1 in Weight 163 lb BMI 30.8 BP 124/84 Blood Pressure Location Lt brachial Position Sitting Respiration 16 Pulse 88 Pulse Source Pulse Oximeter Temp Source Oral Intake Visit Reasons: PFT order Elevator Examiner And Adjuster Required: No Allergies seafood Allergy (Severe, Verified 04/12/25 09:39) Anaphylaxis LOTION Allergy (Intermediate, Uncoded 01/20/25 11:52) facial rash Medication List - Last Reconciled 05/12/25 by YOKO Ma- albuterol sulfate 90 mcg/actuation 1 inh inhalation QID PRN 30 days Donut pillow As directed fluconazole 150 mg PO Q3D fluticasone propionate 50 mcg/actuation 1 spray intranasal Q12H ketoconazole 2% 1 appl topical lidocaine 5% 1 patch topical DAILY loratadine (Allergy Relief (loratadine)) 10 mg (10 mL) PO DAILY PRN metronidazole 0.75%(37.5mg/5gram) 1 appful vaginal BEDTIME 5 days nystatin 5 mL buccal qid 7 days olopatadine 0.7% (Pataday Once Daily Relief) 1 drp ophthalmic (eye) Q24H PRN omeprazole 20 mg PO DAILY oxybutynin chloride 5 mg PO BID terbinafine HCl 250 mg PO DAILY Tobacco use date assessed: 05/12/25 Dental Screening Dental Screen Date: 05/12/25 Did you have a dental visit in the last 12 months?: Yes Did you have a dental problem in the last 6 months where you did not have access to dental care?: No Was dental information given to patient?: Patient has dentist HPI PFT order HPI Details Chief Complaint The patient presents with anxiety, depression, PTSD, ADHD, and chronic back pain. History of Present Illness The patient is a 45-year-old female presenting with anxiety, depression, PTSD, ADHD, and chronic back pain. She reports ongoing management with a psychologist for anxiety and depression, with recent diagnoses of PTSD and ADHD. She denies any suicidal or homicidal ideation and states she is doing well overall. The patient experiences chronic back pain, primarily in the cervical and lumbar regions, for which she has received management in the past. She requests a refill of lidocaine patches for pain management. Social History Health Maintenance Review of Systems - Psychiatric: Reports anxiety, depressi on, PTSD, ADHD. Denies suicidal or homicidal ideation. - Musculoskeletal: Reports chronic back pain, primarily cervical and lumbar. Physical Exam General: Cooperative, healthy appearing, comfortable, no acute distress and well developed Orientation: Patient oriented x3 Limitations: No limitations Head: Normal to inspection Ears: Hearing grossly normal bilaterally Nose: Normal external nose present Face and sinus: Normal facial exam Eyes: Appearance normal, both eyes and all related structures Neck: Normal visual inspection and Yes full ROM Respiratory: Normal respiratory effort and able to speak in complete sentences. Clear to auscultation bilaterally Cardiovascular: Regular rate and rhythm. Normal S1 and S2 GI: Normal to inspection. Soft to palpation and nontender Skin: No rashes or lesions noted Neuro: Patient oriented x3 Extremities: Normal to inspection Results Plan 1. Anxiety The patient is advised to continue follow-up with her psychologist for anxiety management. 2. Depression The patient is advised to continue follow-up with her psychologist for depression management. 3. Post-Traumatic Stress Disorder (Ptsd) The patient is advised to continue follow-up with her psychologist for PTSD management. 4. Attention-Deficit/Hyperactivity Disor elpidio (Adhd) The patient is advised to continue follow-up with her psychologist for ADHD man agement. 5. Chronic Back Pain The patient requests a refill of lidocaine patches for pain management and is encouraged to continue previous management strategies. Discussion Notes I encouraged the patient to continue her follow-up with her psychologist and reinforced the possibility of further evaluation by a psychiatrist if deemed necessary by her therapist. Patient Instructions - Continue follow-up with your psycholog ist for anxiety, depression, PTSD, and ADHD management. - Use lidocaine patches as prescribed fo r chronic back pain management. [facility] Medical History (Updated 05/12/25 @ 13:52 by MONICA Ma) ADHD PTSD (post-traumatic stress disorder) Acute cystitis Fatigue Coccygeal pain Anxiety Left shoulder pain Surgical History No pertinent past surgical history Social History Housing: [place] Alcohol intake: former Year quit: 2005 Patient Tobacco Use Status: Former Tobacco user Years Smoked: quit 12/2005 e-Cigarette/Vaping Use: Never Used Second Hand Smoke Exposure: Yes Substance Use Type: Marijuana service: No Current occupational status: unemployed Cognitive needs: No Hearing needs: No Vision needs: No Questionnaire Thrive Questionnaire Date Thrive assessed: 09/21/24 I am a: Patient What is your living situation today?: I have a steady place to live Within the past 12 months, did the food you bought not last and you didn't have the money to get more?: Sometimes True Within the past 12 months, did you worry whether your food would run out before you got money to buy more?: Sometimes True Do you have trouble paying for medicines?: No Do you have trouble getting transportation to medical appointments?: No Do you have trouble paying your heating and electricity bill?: No Do you have trouble taking care of your child, family member or friend?: No Do you have trouble with day-to-day activities such as bathing, preparing meals, shopping, managing finances, etc.?: Yes Are you currently unemployed and looking for a job?: No Are you interested in more education?: No Please select the resources that you would like help with: None Currently or been in a relationship where the following occur: No concerns reported THRIVE Score: 2 PEDRO-7 AMB Questionnaire PEDRO-7 Date PEDRO - 7 assessed: 05/12/25 Feeling nervous, anxious, or on edge: 2 = More than half the days Not being able to stop or control worryin = More than half the days Worrying too much about different things: 2 = More than half the days Trouble relaxin = More than half the days Being so restless that it is hard to sit still: 0 = Not at all Becoming easily annoyed or irritable: 0 = Not at all Feeling afraid as if something awful might happen: 0 = Not at all Total PEDRO-7 score (0-4 normal; 5-9 mild; 10-14 moderate; 15-21 severe): 8 Source: Developed by Drs. Trevor Brar, Jenniffer Carrion, Felix Segovia and colleagues, with an educational naif from [employer]. PEDRO-7 Assessment Billing PEDRO-7 Assessment Tool: PEDRO-7 Assessment 25221 (has a therapist, denies any si or hi) Physical exam (Primary Care) Vital Signs: Last Vital Signs Pulse 88 05/12/25 12:56 Resp 16 05/12/25 12:56 BP 124/84 05/12/25 12:56 BMI result Body Mass Index 30.8 Tobacco/Smoking Status: Tobacco use Status Tobacco use date assessed 05/12/25 05/12/25 13:07 Patient Tobacco Use Status Former Tobacco user 05/12/25 13:05 e-Cigarette/Vaping Use Never Used 05/12/25 13:05 Thrive Assessment: Date of Thrive Assessment Date Thrive assessed 09/21/24 05/12/25 13:05 Currently or been in a relationship where the following occur: No concerns reported Coding Level of Care Code Est Pt Level 3 (26008) Diagnoses Anxiety F41.9 Vitamin D deficiency E55.9 PTSD (post-traumatic stress disorder) F43.10 Additional Codes PEDRO-7 Assessment Billing - PEDRO-7 Assessment Tool: PEDRO-7 Assessment 76515 ([id number]) Assessment & Plan Assessment & Plan (1) Anxiety: Code(s): F41.9 - Anxiety disorder, unspecified Category: Medical (2) Vitamin D deficiency: Code(s): E55.9 - Vitamin D deficiency, unspecified Category: Medical (3) PTSD (post-traumatic stress disorder): Code(s): F43.10 - Post-traumatic stress disorder, unspecified Category: Medical Plan . Orders: Orders TSH reflex Free T4 Today F41.9 - Anxiety disorder, unspecified Complete Blood Count Auto Diff Today F41.9 - Anxiety disorder, unspecified Comprehensive [place]. Panel Fast Today F41.9 - Anxiety disorder, unspecified UA CC w/rflx Micro + Cult Today F41.9 - Anxiety disorder, unspecified Lipid Panel Today F41.9 - Anxiety disorder, unspecified Vitamin D 25-OH Total Today E55.9 - Vitamin D deficiency, unspecified Medications: New lidocaine 5% leave on most painful area for up to 12 hrs 1 patch topical DAILY 30 ea 0RF Refilled olopatadine 0.7% (Pataday Once Daily Relief) 1 drp ophthalmic (eye) Q24H PRN 5 mL 0RF itching Discontinued lidocaine 4% (AsperFlex (lidocaine)) Discontinued Reason: Doctor's Order 1 patch topical DAILY PRN 30 ea 1RF pain
== END 2025-05-12 14:05 | disposition home or self-care (01) ==
LOC: HO.HMCC 12:49
PROVIDERS: PCP Nurse Practitioner Family; Visit Provider Nurse Practitioner Family
DX: F41.9 Anxiety disorder, unspecified (principal); E55.9 Vitamin D deficiency, unspecified; F43.10 Post-traumatic stress disorder, unspecified

== ENCOUNTER → 2025-05-12 12:48 | Outpatient (BNVA) | payer MEDICAID, SELFPAY | PROVIDERS: PCP Nurse Practitioner Family; Visit Provider Nurse Practitioner Family | DX: M54.2 Cervicalgia (principal); M54.50 Low back pain, unspecified; F41.9 Anxiety disorder, unspecified; F32.A Depression, unspecified; F43.10 Post-traumatic stress disorder, unspecified; F90.9 Attention-deficit hyperactivity disorder, unspecified type; G89.29 Other chronic pain; E55.9 Vitamin D deficiency, unspecified | CPT/HCPCS: 96127; 99212 ==

== ENCOUNTER 2025-07-17 13:49 | Outpatient (REF) | payer MEDICAID, SELFPAY ==
[2025-07-17 15:42] LABS: Appearance Urine Cloudy; Glucose Urine UA Negative (Negative); PH 5.5 (5.0-9.0); Specific Gravity - Urine 1.025 (1.005-1.025)
== END 2025-07-17 13:50 | disposition home or self-care (01) ==
LOC: HO.LAB 13:49
PROVIDERS: PCP Nurse Practitioner Family
DX: Z00.00 Encounter for general adult medical examination without abnormal findings (principal); R30.0 Dysuria; Z11.3 Encounter for screening for infections with a predominantly sexual mode of transmission; Z13.89 Encounter for screening for other disorder
CPT/HCPCS: 81003; 87086; 99212

== ENCOUNTER 2025-07-17 13:49 | Outpatient (AMB) | payer MEDICAID, SELFPAY ==
--- OUTSIDE RECORDS SUMMARY | 2025-07-17 13:51 | XMS_ITS | Clinical Summary ---
Author Organization [address] [place] [address] Address [address] [place] [address] Phone Care Team Providers Care Cdl A Driver Name Role Phone HannahBrodie yusuf Carly GIBBONS [...] Encounters Date Type Department Care Team Description 05/10/2025 1:30 PM EDT Office Visit Obstetrics and Gynecology [address] [phone] Farideh Robles CNM Screen for STD (sexually transmitted disease) (Primary Dx) 04/28/2025 11:00 AM EDT Office Visit Orthopedic Surgery - [address] [phone] Srikanth Calvin, DPSonya Pain in right foot (Primary Dx); Tinea pedis of both feet; Dermatophytosis of nail from Last 3 Months Immunizations Immunization Administration Dates Next Due Hepatitis A-Hepatitis B [...] Multiple Livin g Live Births 2 1 0 1 0 0 1 1 Date Outcome GA Total Labor Labor/2nd/3rd Weight Sex Type Anes PTL Daniella A1 A5 Name Clin 2005 36w 0d 3232 g (114 oz) M CS-LT ranv Epidur al Livin g [address] Cifuentes Delivery Location:[facility] Last Filed Vital Signs Vital Sign Reading Time Taken Comments Blood Pressure 124/79 05/10/2025 1:37 PM EDT Pulse 89 05/10/2025 1:37 PM EDT Temperature - - Respiratory Rate 14 05/10/2025 1:37 PM EDT Oxygen Saturation - - Inhaled Oxygen Concentration - - Weight 74.4 kg (164 lb) 05/10/2025 1:37 PM EDT Height 163.8 cm (5' 4.5 ) 12/17/2024 9:13 AM EDT Body Mass Index 27.72 12/17/2024 9:13 AM EDT Plan of Treatment Upcoming Encounters Date Type Department Care Team (Late st Contact Info) Description 08/02/2025 2:00 PM EST Office Visit Orthopedic Surgery - [place] [address] [phone] Srikanth Calvin, DPSonya [address] [address] 08/17/2025 10:30 AM EST Office Visit Obstetrics and Gynecology - [address] [phone] Farideh Robles CNM [address] [place] [phone] Health Maintenance Due Date Last Done Comments HPV Vaccines (1 - 3-dose SCD M series) 2008 Social Influencers of Health Screening 07/07/2022 Depression Screening 08/05/2024 COVID-19 Vaccine ( - 2024-2 6 season) 2025 Influenza Vaccine (#1) 2025 Breast Cancer Screening 12/05/2025 12/06/2023 DTaP,Tdap,and Td Vaccines (2 - Td or Tdap) 03/26/2028 03/26/2018 Cervical Cancer Screening: HPV 09/25/2029 0 09/25/2024, 09/25/2024, 04/14/2020 RSV Immunization Adult Patients (1 - 1-dose 75+ series) 2056 Hepatitis A Vaccines Aged Out 11/29/2016, 07/04/2016, 05/25/2016 No longer eligible based on patient's age to complete this topic Hepatitis B Vaccines Completed 11/29/2016, 07/04/2016, 05/25/2016 HIV Screening Completed 05/10/2025, 10/08/2024, 11/26/2023 Hepatitis C Screening Completed 05/10/2025 , 10/08/2024, 11/26/2023 HIB Vaccines Aged Out No longer [...] Name Priority Date/Time Associated Diagnosis Comments HEPATITIS B SURFACE ANTIGEN WITH CONFIRMATION Routine 05/10/2025 2:04 PM EDT Screen for STD (sexually transmitted disease) HEPATITIS C ANTIBODY Routine 05/10/2025 2:04 PM EDT Screen for STD (sexually transmitted disease) HIV 1, 2 ANTIBODY, P24 ANTIGEN WITH REFLEX TO DIFFERENTIATION Routine 05/10/2025 2:04 PM EDT Screen for STD (sexually transmitted disease) TREPONEMA PALLIDUM ANTIBODY WITH REFLEX TO RPR AND PARTICLE AGGLUTINATION Routine 05/10/2025 2:04 PM EDT Screen for STD (sexually transmitted disease) TRICHOMONAS VAGINALIS ANTIGEN Routine 05/10/2025 1:46 PM EDT Screen for STD (sexually transmitted disease) WET PREP, GENITAL Routine 05/10/2025 1:4 6 PM EDT Screen for STD (sexually transmitted disease) CHLAMYDIA TRACHOMATIS AND NEISSERIA GONORRHOEAE PCR Routine 05/10/2025 1:46 PM EDT Screen for STD (sexually transmitted disease) HPV WITH REFLEX GENOTYPE Routine 09/25/2024 9:17 AM EST Encounter for well woman exam with routine gynecological exam Screening for cervical cancer MG MAMMO DIGITAL DIAGNOSTIC BILAT Routine 12/06/2023 11:23 AM EDT from Last 3 Months or Most Recently Relevant to Health Maintenance Results * Hepatitis C antibody (05/10/2025 2:04 PM EDT) [facility] Hepatitis C Antibody Negative Negative LAB CHEMISTRY METHOD 05/10/2025 5:47 PM EDT [facility] Blood Venous blood specimen / Unknown Venipuncture / Unknown 05/10/2025 2:04 PM EDT 05/10/2025 2:04 PM EDT Farideh TSE LAB BLOOD ORDERABLES Final Resu lt [facility] [address] [place] [address], [place] [phone] * HIV 1,2 antibody, p24 antigen with reflex to differentiation (05/10/2025 2:04 PM EDT) [facility] HIV Combo AB/AG Negative Negative LAB CHEMISTRY METHOD 05/10/2025 5:47 PM EDT [facility] Blood Venous blood specimen / Unknown Venipuncture / Unknown 05/10/2025 2:04 PM EDT 05/10/2025 2:04 PM EDT Narrative [facility] - 05/10/2025 5:47 PM EDT This assay is a 4th generation assay allowing for earlier detection of HIV infection by detecting the presence of the HIV-1 p24 antigen as well as the traditional antibodies to HIV type 1 (including group O) and type 2. Use of a 4th generation assay is the current CDC recommendation for HIV screening. us Farideh TSE LAB BLOOD ORDERABLES Final Resu lt Performing Organization Address [facility]/ZIP Co de Phone Number [facility] [address] [place] [address], [place] [phone] * Hepatitis B surface antigen with reflex to confirmation (05/10/2025 2:04 PM EDT) Hepatitis B Surface Ag Negative Negative LAB CHEMISTRY METHOD 05/10/2025 5:18 PM EDT [facility] Blood Venous blood specimen / Unknown Venipuncture / Unknown 05/10/2025 2:04 PM EDT 05/10/2025 2:04 PM EDT Narrative [facility] - 05/10/2025 5:18 PM EDT Over the counter supplements containing high doses of biotin may interfere with this assay. If interference is suspected, patients shoud be retested after refraining from biotin supplements for 72 hours. us Farideh TSE LAB BLOOD ORDERABLES Final Resu lt Performing Organization Address [facility] Co de Phone Number [facility] [address] [place] [address], [place] [phone] * Treponema pallidum antibody with reflex to RPR and particle agglutination (05/10/2025 2:04 PM EDT) T. Pallidum Antibodies Negative Negative LAB CHEMISTRY METHOD 05/10/2025 7:04 PM EDT [facility] Blood Venous blood specimen / Unknown Venipuncture / Unknown 05/10/2025 2:04 PM EDT 05/10/2025 2:04 PM EDT us Farideh Robles [facility] BLOOD ORDERABLES Final Resu lt [facility] [address] [place] [address], [place] [phone] * Trichomonas vaginalis antigen (05/10/2025 1:46 PM EDT) Trichomonas vaginalis Negative Negative 05/10/2025 7:05 PM EDT [facility] Swab Vaginal structure / Unknown Non-blood Collection / Unknown 05/10/2025 1:46 PM EDT 05/10/2025 1:46 PM EDT Farideh TSE LAB MICROBIOLOGY - GENERAL ORDE RABLES Final Result Performing Organization Address [facility]/ZIP Co de Phone Number [facility] [address] [place] [address], [place] [phone] * Chlamydia trachomatis and Neisseria gonorrhoeae molecular study (05/10/2025 1:46 PM EDT) Neisseria gonorrhoeae PCR Negative Negative LAB MOLECULAR DIAGNOSTICS METHOD 05/11/2025 9:50 AM EDT [facility] Chlamydia trachomatis PCR Negative Negative LAB MOLECULAR DIAGNOSTICS METHOD 05/11/2025 9:50 AM EDT [facility] Swab Cervix uteri structure / Unknown Non-blood Collection / Unknown 05/10/2025 1:46 PM EDT 05/10/2025 1:46 PM EDT us Farideh TSE LAB MICROBIOLOGY - GENERAL ORDE RABLES Final Result Performing Organization Address City/[facility]/ZIP Co de Phone Number [facility] [address] [place] [address], [place] [phone] * Wet prep, genital (05/10/2025 1:46 PM EDT) Clue Cells, Wet Prep Negative Negative 05/10/2025 7:04 PM EDT [facility] Yeast, Wet Prep Negative Negative 05/10/2025 7:04 PM EDT [facility] Trichomonas, Wet Prep Indeterminate Negative 05/10/2025 7:04 PM EDT [facility] Comment:Refer to Trichomonas antigen. Swab Vaginal structure / Unknown Non-blood Collection / Unknown 05/10/2025 1:46 PM EDT 05/10/2025 1:46 PM EDT Farideh Robles [facility] MICROBIOLOGY - GENERAL VINCE ORTEGA Final Result [facility] [address] [place] [address], [place] [phone] * (ABNORMAL) HPV with reflex genotype (09/25/2024 9:17 AM EST) HPV Positive( A) Negative LAB MICROBIOLOGY METHOD 09/28/2024 3:13 PM EST [facility] Brushing/Spatula Cervix uteri structure / Unknown 09/25/2024 9:17 AM EST 09/28/2024 6:24 AM EST Nikki Lundy [facility] MOLECULAR DIAGNOSTICS ORD ERABLES Final Result Performing Organization Address City/[facility]/ZIP Co de Phone Number [facility] [address] [place] [address], [place] [phone] * MG Mammo Digital Diagnostic bilat (12/06/2023 11:23 AM EDT) Anatomical Region Laterality Modality Breast Bilateral Mammography Historical Provider MD MONTIEL BI PROCEDURES Final R esult from Last 3 Months or Most Recently Relevant to Health Maintenance Insurance MEDICAID - [place] Care Teams Cdl A Driver Relationship Specialty Start Date End Date Brodie Gonzalez NP [address] [place], [place] PCP - General Family Medicine 07/27/24
[2025-07-17 13:56] VITALS: BP 132/72; PULSE 84; RESP 16; TEMP 36.7; O2SAT 98; BMI 31.7
--- NOTE | 2025-07-17 13:56 | AM.OFFWIN_ITS ---
Intake Vital Signs 07/17/25 13:56 Height 5 ft 1 in Weight 168 lb BMI 31.7 BP 132/72 Blood Pressure Location Rt brachial Position Sitting Respiration 16 Pulse 84 Pulse Source Pulse Oximeter Temp 98.1 F Temp Source Oral Pulse Oximetry (%) 98 Oxygen Delivery Method Room Air Intake Visit Reasons: EP, frequent urination with burning Intake Note: Pt is here today c/o frequent and burning upon urination Patient Tobacco Use Status: Former Tobacco user Allergies seafood Allergy (Severe, Verified 07/17/25 14:01) Anaphylaxis LOTION Allergy (Intermediate, Uncoded 07/17/25 14:01) facial rash Medication List - Last Reconciled 07/17/25 by Agustin Harrell MD albuterol sulfate 90 mcg/actuation 1 inh inhalation QID PRN 30 days Donut pillow As directed fluticasone propionate 50 mcg/actuation 1 spray intranasal Q12H ketoconazole 2% 1 appl topical lidocaine 5% 1 patch topical DAILY loratadine (Allergy Relief (loratadine)) 10 mg (10 mL) PO DAILY PRN nystatin 5 mL buccal qid 7 days olopatadine 0.7% (Pataday Once Daily Relief) 1 drp ophthalmic (eye) Q24H PRN omeprazole 20 mg PO DAILY oxybutynin chloride 5 mg PO BID terbinafine HCl 250 mg PO DAILY HPI EP, frequent urination with burning HPI Details patient has complaints of burning with urination as well as frequency. Pt Provided clean-catch urine and Automated Urinalysis in office is unremarkable. minimal discharge. no blood for further discussion, patient notes that she has had recent sexual activity with a new partner and is concerned regarding exposure to STDs no recent fevers or chill no rash or genital lesions [facility] Medical History (Updated 05/12/25 @ 13:52 by MONICA Ma) ADHD PTSD (post-traumatic stress disorder) Acute cystitis Fatigue Coccygeal pain Anxiety Left shoulder pain Surgical History No pertinent past surgical history Social History Housing: House Alcohol intake: former Year quit: 2005 Patient Tobacco Use Status: Former Tobacco user Years Smoked: quit 12/2005 e-Cigarette/Vaping Use: Never Used Second Hand Smoke Exposure: Yes Substance Use Type: Marijuana service: No Current occupational status: unemployed Cognitive needs: No Hearing needs: No Vision needs: No Review of Systems Narrative see HPI Physical Exam Vital Signs: Last Vital Signs Temp 98.1 F 07/17/25 13:56 Pulse 84 07/17/25 13:56 Resp 16 07/17/25 13:56 BP 132/72 07/17/25 13:56 Pulse Ox 98 07/17/25 13:56 Oxygen Delivery Method Room Air 07/17/25 13:56 BMI result Body Mass Index 31.7 Const General: no acute distress and well developed Nutritional Appearance: well nourished Orientation/consciousness: patient oriented x3 HEENT Head: Yes normocephalic and Yes atraumatic Eyes General: appearance normal, both eyes and all related structures Pupils: Equal, round and reactive pupils present EOM: EOMs intact bilaterally Resp Effort & Inspection: normal respiratory effort Auscultation: clear to auscultation bilaterally Cardio Rate: regular rate Rhythm: regular rhythm Heart sounds: S1 normal heart sound present, S2 normal heart sound present, no gallops, no murmurs and no rubs Other: [employer]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; patient has appointment with her PCP this week No CVA TTP Mild suprapubic tenderness to palpation Neuro General: patient oriented x3 and gait normal Cranial nerves: Yes Equal, round and reactive pupils present Psych Affect: normal affect Results AMB Urinalysis, Automated UA Leukoctes 0 Ruben/uL Last Edit by Jasmine Joshua CMA on 07/17/25 14:06 UA Nitrite Negative Last Edit by Jasmine Joshua CMA on 07/17/25 14:06 UA Urobilinogen 0.2 mg/dL Last Edit by Jasmine Joshua CMA on 07/17/25 14:06 UA Protein 0 mg/dL Last Edit by Jasmine Joshua CMA on 07/17/25 14:06 UA pH 6.0 Last Edit by Jasmine Joshua CMA on 07/17/25 14:06 UA Blood 0 Earl/uL Last Edit by Jasmine Joshua CMA on 07/17/25 14:06 UA Specific [place] 1.030 Last Edit by Jasmine Joshua CMA on 07/17/25 14:06 UA Ketone Negative Last Edit by Jasmine Joshua CMA on 07/17/25 14:06 UA Bilirubin 0 mg/dL Last Edit by Jasmine Joshua CMA on 07/17/25 14:06 UA Glucose 0 mg/dL Last Edit by Jasmine Joshua, MALIK on 07/17/25 14:06 Results Reviewed Results Reviewed: Laboratory Last Values Urine pH (Auto) 6.0 07/17/25 14:05 Specific [place] (Auto) 1.030 07/17/25 14:05 Urine Protein (Auto) 0 mg/dL 07/17/25 14:05 Glucose (UA)(Auto) 0 mg/dL 07/17/25 14:05 Urine Ketones (Auto) Negative 07/17/25 14:05 Urine Blood (Auto) 0 Earl/uL 07/17/25 14:05 Urine Nitrite (Auto) Negative 07/17/25 14:05 Urine Bilirubin (Auto) 0 mg/dL 07/17/25 14:05 Urine Urobilinogen (Auto) 0.2 mg/dL 07/17/25 14:05 Leukocyte Esterase (Auto) 0 Ruben/uL 07/17/25 14:05 Assessment & Plan Assessment & Plan (1) Dysuria: Code(s): R30.0 - Dysuria Plan: patient notes burning and frequency with urination. Recent sexual activity with new partner and concerned for chlamydia/gonorrhea however, patient provided urine as clean-catch so unlikely to be helpful for ruling out GC/chlamydia offered to treat for GC chlamydia and test for other STD STIs however, patient says she would like to know if she is positive for GC or chlamydia will treat empirically today for a urinary tract infection with nitrofurantoin and will also give her a script for Diflucan for possible yeast infection. Will send her urine off for urinalysis and culture - ambulatory urine dip test today is negative patient has an appointment coming up with her primary later this week. I have put in an order for a GC chlamydia by urine and also blood testing for STI as she can get this done any time after today - reminded her to provide a dirty urine sample. discussed safe sex and advised no sexual activity until she rules out STI/STDs Orders: Orders AMB Urinalysis Automated Today Z13.9 - Encounter for screening, unspecified UA CC w/rflx Micro + Cult Today R30.0 - Dysuria, Z00.00 - Encounter for general adult medical examination without abnormal findings Hepatitis B,C Profile Today R30.0 - Dysuria, Z11.3 - Encounter for screening for infections with a predominantly sexual mode of transmission Syphilis Screen Today R30.0 - Dysuria, Z11.3 - Encounter for screening for infections with a predominantly sexual mode of transmission Urine Culture Today R30.0 - Dysuria CT NG by PCR Urine 1 Day R30.0 - Dysuria, Z11.3 - Encounter for screening for infections with a predominantly sexual mode of transmission HIV Ab/Ag Today R30.0 - Dysuria, Z11.3 - Encounter for screening for infections with a predominantly sexual mode of transmission Medications: New nitrofurantoin monohyd/m-cryst 100 mg (Macrobid) must administer with a meal/food 100 mg PO BID 14 caps 0RF 7 days fluconazole 150 mg PO Q3D 2 tabs 0RF 2 doses Coding Level of Care Code Est Pt Level 3 (19749) Diagnoses Dysuria R30.0
== END 2025-07-17 14:37 | disposition home or self-care (01) ==
PROVIDERS: PCP Nurse Practitioner Family; Visit Provider Family Medicine
DX: Z13.9 Encounter for screening, unspecified (principal); R30.0 Dysuria

== ENCOUNTER 2025-07-20 10:29 | Outpatient (REF) | payer MEDICAID, SELFPAY ==
[2025-07-20 10:54] LABS: MANUAL DIFF FLAG NO
[2025-07-20 11:11] LABS: Hematocrit 38.5 % (37.0-47.0); Hemoglobin 12.7 g/dl (12.0-16.0); Imm Gran Abs Auto 0.03 X10*3/uL (0.00-0.03); Imm Gran Pct Auto 0.3 % (0.0-0.4); Lymphocytes Absolute Auto 3.5 X10*3/uL (1.2-4.9); Mean Corpuscular HGB Conc 33.0 g/dl (31.0-35.0); Mean Corpuscular Hemoglobin 23.9 pg (27.0-33.0); Mean Corpuscular Volume 72.4 fL (80.0-98.0); NRBC Abs Auto 0.000 X10*3/uL (0.0-0.012); NRBC Pct Auto 0.0 /100WBC (0.0-0.2); Platelet Count 335 X10*3/uL (160-400); Red Blood Count 5.32 X10*6/uL (4.20-5.50); White Blood Count 9.6 X10*3/uL (4.8-10.8)
[2025-07-20 11:56] LABS: Alanine Aminotransferase 13 U/L (0-31); Albumin Level 4.1 g/dL (3.5-5.0); Alkaline Phosphatase 87 U/L (39-117); Anion Gap 9 (12-20); Aspartate Amino Transferase 28 U/L (5-31); Blood Urea Nitrogen 7 mg/dL (9-16); Calcium 8.8 mg/dL (8.4-10.2); Carbon Dioxide 26 mmol/L (22-29); Chloride 106 mmol/L (96-108); Cholesterol 183 mg/dL (<200); Estimated Glomerular Filt Rate > 60; HDL Cholesterol 49 mg/dL (>40); Potassium 4.0 mmol/L (3.3-5.1); Sodium 137 mmol/L (135-145); Total Protein 7.1 g/dL (6.5-8.0); Triglycerides 116 mg/dL (<150)
[2025-07-20 13:03] LABS: CT PCR Urine NOT DETECTED (Not Detect.); NG PCR Urine NOT DETECTED (Not Detect.)
--- OUTSIDE RECORDS SUMMARY | 2025-07-20 13:13 | XMS_ITS | Clinical Summary ---
Author Organization [address] [place] [address] Address [address] [place] [address] Phone Care Team Providers Care General Superintendent Name Role Phone HannahBrodie yusuf Carly GIBBONS [...] PM EDT Office Visit Obstetrics and Gynecology [address] [address] Farideh Robles CNM Screen for STD (sexually transmitted disease) (Primary Dx) 04/28/2025 11:00 AM EDT Office Visit Orthopedic Surgery - [address] [phone] Srikanth Calvin, DPSonya Pain in right foot [...] Livin g [address] Cifuentes Delivery Location:[facility] Last Filed Vital Signs Vital [...] PM EST Office Visit Orthopedic Surgery - [place] [address] [address] Srikanth Calvin, DPSonya [address] [address] 08/17/2025 10:30 AM EST Office Visit Obstetrics and Gynecology - [address] [phone] Farideh Robles CNM [address] [place] [address] Health Maintenance Due Date Last Done Comments [...] Hepatitis C antibody (05/10/2025 2:04 PM EDT) [facility] Hepatitis C Antibody Negative Negative LAB CHEMISTRY METHOD 05/10/2025 5:47 PM EDT [facility] Blood Venous blood specimen / Unknown Venipuncture / Unknown 05/10/2025 2:04 PM EDT 05/10/2025 2:04 PM EDT Farideh TSE LAB BLOOD ORDERABLES Final Resu lt [facility] [address] [place] [address], [place] [phone] * HIV 1,2 antibody, p24 antigen with reflex to differentiation (05/10/2025 2:04 PM EDT) [facility] HIV Combo AB/AG Negative Negative LAB CHEMISTRY METHOD 05/10/2025 5:47 PM EDT [facility] Blood Venous blood specimen / Unknown Venipuncture / Unknown 05/10/2025 2:04 PM EDT 05/10/2025 2:04 PM EDT Narrative [facility] - 05/10/2025 5:47 PM EDT [...] ORDERABLES Final Resu lt Performing Organization Address [facility]/ZIP Co de Phone Number [facility] [address] [place] [address], [place] [phone] * Hepatitis B surface antigen with reflex to confirmation (05/10/2025 2:04 PM EDT) Hepatitis B Surface Ag Negative Negative LAB CHEMISTRY METHOD 05/10/2025 5:18 PM EDT [facility] Blood Venous blood specimen / Unknown Venipuncture / Unknown 05/10/2025 2:04 PM EDT 05/10/2025 2:04 PM EDT Narrative [facility] - 05/10/2025 5:18 PM EDT Over the counter supplements containing high doses of biotin may interfere with this assay. If interference is suspected, patients shoud be retested after refraining from biotin supplements for 72 hours. us Farideh TSE LAB BLOOD ORDERABLES Final Resu lt Performing Organization Address [facility] Co de Phone Number [facility] [address] [place] [address], [place] [phone] * Treponema pallidum antibody with reflex to RPR and particle agglutination (05/10/2025 2:04 PM EDT) T. Pallidum Antibodies Negative Negative LAB CHEMISTRY METHOD 05/10/2025 7:04 PM EDT [facility] Blood Venous blood specimen / Unknown Venipuncture / Unknown 05/10/2025 2:04 PM EDT 05/10/2025 2:04 PM EDT us Farideh Robles [facility] BLOOD ORDERABLES Final Resu lt [facility] [address] [place] [address], [place] [phone] * Trichomonas vaginalis antigen (05/10/2025 1:46 PM EDT) Trichomonas vaginalis Negative Negative 05/10/2025 7:05 PM EDT [facility] Swab Vaginal structure / Unknown Non-blood Collection / Unknown 05/10/2025 1:46 PM EDT 05/10/2025 1:46 PM EDT Farideh TSE LAB MICROBIOLOGY - GENERAL ORDE RABLES Final Result Performing Organization Address [facility]/ZIP Co de Phone Number [facility] [address] [place] [address], [place] [phone] * Chlamydia trachomatis and Neisseria gonorrhoeae molecular study (05/10/2025 1:46 PM EDT) Neisseria gonorrhoeae PCR Negative Negative LAB MOLECULAR DIAGNOSTICS METHOD 05/11/2025 9:50 AM EDT [facility] Chlamydia trachomatis PCR Negative Negative LAB MOLECULAR DIAGNOSTICS METHOD 05/11/2025 9:50 AM EDT [facility] Swab Cervix uteri structure / Unknown Non-blood Collection / Unknown 05/10/2025 1:46 PM EDT 05/10/2025 1:46 PM EDT us Farideh TSE LAB MICROBIOLOGY - GENERAL ORDE RABLES Final Result Performing Organization Address City/[facility]/ZIP Co de Phone Number [facility] [address] [place] [address], [place] [phone] * Wet prep, genital (05/10/2025 1:46 PM EDT) Clue Cells, Wet Prep Negative Negative 05/10/2025 7:04 PM EDT [facility] Yeast, Wet Prep Negative Negative 05/10/2025 7:04 PM EDT [facility] Trichomonas, Wet Prep Indeterminate Negative 05/10/2025 7:04 PM EDT [facility] Comment:Refer to Trichomonas antigen. Swab Vaginal structure / Unknown Non-blood Collection / Unknown 05/10/2025 1:46 PM EDT 05/10/2025 1:46 PM EDT Farideh Robles [facility] MICROBIOLOGY - GENERAL VINCE ORTEGA Final Result [facility] [address] [place] [address], [place] [phone] * (ABNORMAL) HPV with reflex genotype (09/25/2024 9:17 AM EST) HPV Positive( A) Negative LAB MICROBIOLOGY METHOD 09/28/2024 3:13 PM EST [facility] Brushing/Spatula Cervix uteri structure / Unknown 09/25/2024 9:17 AM EST 09/28/2024 6:24 AM EST Nikki Lundy [facility] MOLECULAR DIAGNOSTICS ORD ERABLES Final Result Performing Organization Address City/[facility]/ZIP Co de Phone Number [facility] [address] [place] [address], [place] [phone] * MG Mammo Digital Diagnostic bilat (12/06/2023 11:23 AM EDT) Anatomical Region Laterality Modality Breast Bilateral Mammography Historical Provider MD MONTIEL BI PROCEDURES Final R esult from Last 3 Months or Most Recently Relevant to Health Maintenance Insurance MEDICAID - [place] Care Teams General Superintendent Relationship Specialty Start Date End Date Brodie Gonzalez NP [address] [place], [place] PCP - General Family Medicine 07/27/24
[2025-07-21 04:44] LABS: Syphilis Screen Nonreactive (Nonreactive)
[2025-07-21 04:45] LABS: HBc Num1 0.09 S/CO (0.00-0.79); HIV Num 1 0.09 S/CO (0.00-0.99); ~HepC Num1 0.16 S/CO (0.00-0.79); ~Hepatitis B Surface Antibody REACTIVE (Nonreactive); ~Hepatitis C Antibody Nonreactive (Nonreactive)
[2025-07-22 13:22] LABS: HBsAGNum1 0.26 S/CO (0.00-0.99); Hepatitis B Surface Antigen Negative (Negative)
== END 2025-07-20 10:30 | disposition home or self-care (01) ==
LOC: HO.LAB 10:29
PROVIDERS: Family Medicine; PCP Nurse Practitioner Family; Visit Provider Nurse Practitioner Family
DX: Z11.59 Encounter for screening for other viral diseases (principal); Z11.4 Encounter for screening for human immunodeficiency virus [HIV]; Z20.2 Contact with and (suspected) exposure to infections with a predominantly sexual mode of transmission; F41.9 Anxiety disorder, unspecified; E55.9 Vitamin D deficiency, unspecified; R30.0 Dysuria
CPT/HCPCS: 36415; 80053; 80061; 82306; 84443; 85025; 86704; 86706; 86780; 86803; 87340; 87389; 87491; 87591

== ENCOUNTER 2025-07-22 09:52 | Outpatient (AMB) | payer MEDICAID, SELFPAY ==
[2025-07-22 10:02] VITALS: BP 122/80; PULSE 97; O2SAT 99; BMI 31.6
--- NOTE | 2025-07-22 10:02 | AM.OFFWIN_ITS ---
Intake Vital Signs 07/22/25 10:02 Height 5 ft 1 in Weight 167 lb BMI 31.6 BP 122/80 Blood Pressure Location Lt brachial Position Sitting Pulse 97 Pulse Source Pulse Oximeter Pulse Oximetry (%) 99 Oxygen Delivery Method Room Air Intake Visit Reasons: EP Vaginal swap + UA Intake Note: Patient presents c/o itching, discharge for a few weeks. Was seen on 07/17. Patient Tobacco Use Status: Former Tobacco user Allergies seafood Allergy (Severe, Verified 07/22/25 10:16) Anaphylaxis LOTION Allergy (Intermediate, Uncoded 07/22/25 10:16) facial rash Medication List - Last Reconciled 07/22/25 by Antoinette Joaquin NP albuterol sulfate 90 mcg/actuation 1 inh inhalation QID PRN 30 days Donut pillow As directed fluticasone propionate 50 mcg/actuation 1 spray intranasal Q12H lidocaine 5% 1 patch topical DAILY loratadine (Allergy Relief (loratadine)) 10 mg (10 mL) PO DAILY PRN nystatin 5 mL buccal qid 7 days olopatadine 0.7% (Pataday Once Daily Relief) 1 drp ophthalmic (eye) Q24H PRN omeprazole 20 mg PO DAILY oxybutynin chloride 5 mg PO BID HPI HPI Comments History of Present Illness Details 45-year-old female presents to the walk- in clinic with complaints of vaginal discharge and itching. Patient was seen in the clinic this past Saturday for similar symptoms. At that visit, urinalysis, urine culture, and urine GC/CT were obtained. Urine C&S returned negative, and GC/CT were negative. Patient was prescribed fluconazole (2 doses) and Macrobid, but she was later instructed not to take Macrobid due to negative urine culture. She reports she completed the fluconazole as prescribed but continues to have symptoms. Patient reports recent unprotected intercourse with a new partner, prompting concern for possible STI despite negative urine testing. She reports she is not currently using any form of control. Patient is due for her menstrual period at the end of this week. Denies dysuria, urinary frequency or urgency, pelvic pain, fever, chills, nausea, or vomiting. [facility] Medical History (Updated 07/22/25 @ 10:41 by Antoinette Joaquin NP) Vaginitis and vulvovaginitis ADHD PTSD (post-traumatic stress disorder) Acute cystitis Fatigue Coccygeal pain Anxiety Left shoulder pain Surgical History No pertinent past surgical history Social History Housing: [place] Alcohol intake: former Year quit: 2005 Patient Tobacco Use Status: Former Tobacco user Years Smoked: quit 12/2005 e-Cigarette/Vaping Use: Never Used Second Hand Smoke Exposure: Yes Substance Use Type: Marijuana service: No Current occupational status: unemployed Cognitive needs: No Hearing needs: No Vision needs: No Review of Systems Const All systems reviewed & are unremarkable except as noted in HPI and below Physical Exam Vital Signs: Last Vital Signs Pulse 97 07/22/25 10:02 BP 122/80 07/22/25 10:02 Pulse Ox 99 07/22/25 10:02 Oxygen Delivery Method Room Air 07/22/25 10:02 BMI result Body Mass Index 31.6 Const General: no acute distress Nutritional Appearance: well nourished Orientation/consciousness: patient oriented x3 GI Inspection: Yes Abdominal panniculus present Palpation (GI): Soft to palpation, not firm, Tenderness to palpation present (GI) suprapubicly, no guarding and not rigid Auscultation: normal bowel sounds General: Yes no CVA tenderness Speculum Exam - Vagina: abnormal vaginal discharge white and malodorous Speculum Exam - Cervix: Cervical os open, Abnormal cervical discharge present white and malodorous and nontender Bimanual exam- vagina & uterus: No Cervical tenderness present and no cervical motion tenderness Bimanual Exam- Adnexa, other: no masses OB/external & speculum: Cervical os open Back/Spine/Pelvis Back: no CVA tenderness Neuro General: patient oriented x3 Psych Speech and movement: Normal speech and movement present Results AMB Test Urine AMB Test Urine Negative Last Edit by Lauren Murdock CMA on 07/22/25 11:00 Results Reviewed Results Reviewed: Laboratory Last Values Tst Clinic Negative 07/22/25 10:59 Assessment & Plan Assessment & Plan (1) Vaginitis and vulvovaginitis: Code(s): N76.0 - Acute vaginitis Plan: Urine HCG - Negative. Urinalysis: previously unremarkable Urine culture: negative Urine GC/CT: negative Vaginal Exam consistent with BV - Ordered Bacterial Panel and Sent Metronidazole 500 mg x 7 days. 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 Orders: Orders Bacterial Vaginosis Panel Today N76.0 - Acute vaginitis AMB Pelvic Exam Today N76.0 - Acute vaginitis AMB HCG Urine Test Today Z13.9 - Encounter for screening, unspecified Medications: New miconazole nitrate 2% 1 appful vaginal BEDTIME 45 grams 0RF 7 days N76.0 - Acute vaginitis metronidazole 500 mg PO BID 14 tabs 0RF 7 days N76.0 - Acute vaginitis Discontinued nitrofurantoin monohyd/m-cryst 100 mg (Macrobid) must administer with a meal/food Discontinued Reason: No Longer Medically Relevant 100 mg PO BID 7 days 14 caps 0RF Coding Level of Care Code Est Pt Level 4 (70688) Diagnoses Vaginitis and vulvovaginitis N76.0 Time Spent (min) 20
== END 2025-07-22 11:04 | disposition home or self-care (01) ==
PROVIDERS: PCP Nurse Practitioner Family; Visit Provider Nurse Practitioner Family
DX: Z13.9 Encounter for screening, unspecified (principal); N76.0 Acute vaginitis

== ENCOUNTER 2025-07-22 09:52 | Outpatient (REF) | payer MEDICAID, SELFPAY ==
[2025-07-22 15:48] LABS: Bacterial Vaginosis PCR NEGATIVE (Negative); Candida Group PCR DETECTED (Not Detect); Candida glab krusei PCR NOT DETECTED (Not Detect); Trichomonas vaginalis PCR NOT DETECTED (Not Detect)
== END 2025-07-22 09:53 | disposition home or self-care (01) ==
LOC: HO.LAB 09:52
PROVIDERS: Nurse Practitioner Family; PCP Nurse Practitioner Family
DX: N76.0 Acute vaginitis (principal); Z20.2 Contact with and (suspected) exposure to infections with a predominantly sexual mode of transmission
CPT/HCPCS: 81025; 81515; 99212